=== PATIENT | female | born 1955 | race Caucasian/White ===

== ENCOUNTER → 2017-05-23 16:43 | Outpatient (CLI) | payer OTHER ==
[2016-07-05 11:55] VITALS: BMI 27.1
[~2017-05-23 16:43] MED LIST: ADIPEX-P37.5 M1 PO; AMBIEN10 MG PO; ATIVAN0.5 MG PO; COUMADIN5 MG PO; FOSAMAX 70 MG T70 MG PO; HYZAAR 100-25 T1 TAB PO; NORCO 10/325 TA1 TA1 PO; PEPCID20 MG PO; PERCOCET 10/3251 TA1 PO; PRILOSEC10 M1 PO; ZOCOR20 MG PO
== END | disposition home or self-care (01) ==
LOC: D.MAMMO 10:00
DX: Z12.31 Encounter for screening mammogram for malignant neoplasm of breast (principal)

== ENCOUNTER → 2017-07-23 09:35 | Outpatient (CLI) | payer OTHER ==
[2016-07-05 11:55] VITALS: BMI 27.1
== END | disposition home or self-care (01) ==
LOC: D.MRI 09:35
DX: M54.12 Radiculopathy, cervical region (principal)

== ENCOUNTER 2018-03-18 14:35 | Emergency (ER) | payer OTHER ==
[~2018-03-18] VITALS: Ht 149.9 cm; Wt 68.2 kg
[2018-03-18 15:27] VITALS: Ht 149.9 cm; Wt 68.2 kg
[2018-03-18] MEDS ORDERED: COZAAR100 MG PO (15:30)
[2018-03-18] MEDS ORDERED: ROBAXIN-750750 MG PO (17:43)
[2018-03-18] MEDS ORDERED: VOLTAREN75 MG PO (17:43)
[2018-03-18 18:34] VITALS: BP 186/79
[2018-03-25] MEDS ORDERED: FUROSEMIDE20 MG PO (08:51)
[2018-03-25] MEDS ORDERED: MOBIC7.5 MG PO (08:52)
[2018-03-25] MEDS ORDERED: OMEPRAZOLE40 MG PO (08:52)
[2018-03-25] MEDS ORDERED: CYMBALTA30 MG PO (08:53)
[2018-03-25] MEDS ORDERED: HYDROCODON-ACE1 EAC7 PO (10:51)
== END 2018-03-18 18:15 | disposition home or self-care (01) ==
LOC: D.ER 14:35
DX: S00.83XA Contusion of other part of head, initial encounter (principal); W01.0XXA Fall on same level from slipping, tripping and stumbling without subsequent striking against object, initial encounter; Y93.89 Activity, other specified; Y92.019 Unspecified place in single-family (private) house as the place of occurrence of the external cause; I10 Essential (primary) hypertension; K21.9 Gastro-esophageal reflux disease without esophagitis; F17.200 Nicotine dependence, unspecified, uncomplicated

== ENCOUNTER 2018-03-26 06:30 | Day surgery (SDC) | payer OTHER ==
[2018-03-25 09:37] LABS: HEMOGLOBIN 11.5 g/dL (12-16); MCH 27.2 pg (26.0-34.0); MCHC 31.1 g/dL (31.0-37.0); MCV 87.5 fL (80.0-100.0); MEAN PLATELET VOLUME 8.4 fL (7.4-10.4); RBC 4.23 10x6/uL (4.00-5.40); RDW 14.8 % (11.5-14.5); WBC 5.4 10x3/uL (4.8-10.8)
[~2018-03-26] VITALS: Ht 149.9 cm; Wt 86.2 kg
--- NOTE | ~2018-03-26 | OP ---
PATIENT NAME: ELISSA STRANGE MEDICAL RECORD: [id number] :51 LOCATION:D.OPS ADMISSION DATE: SURGEON: ALETHA WILEY MD DATE OF OPERATION: 03/26/2018 PREOPERATIVE DIAGNOSIS: Recurrent carpal tunnel syndrome of the right wrist. POSTOPERATIVE DIAGNOSIS: Recurrent carpal tunnel syndrome of the right wrist. PROCEDURE: Carpal tunnel release of the right wrist. SURGEON: Aletha Wiley MD ANESTHESIA: General. INTRAOPERATIVE COMPLICATIONS: None. SUMMARY OF PATHOLOGIC FINDINGS: The patient had recurrent transverse carpal ligament, which was tight and pressing on the medial nerve consistent with the preoperative EMGs and NCVs. OPERATIVE SUMMARY IN DETAIL: After obtaining the appropriate preoperative orthopedic surgery consents as well as anesthetic consultation, evaluation, and clearance, the patient was brought to the operating room and placed on the table in supine position. After general laryngeal mask was administered, tourniquet was placed about the proximal aspect of the right upper extremity. Right upper extremity was then prepped and draped in routine sterile fashion. The arm was elevated, exsanguinated, and the tourniquet was inflated to 250 mmHg. An incision was made along the fourth metacarpal row over the lateral palmar crease. Incision was taken down to the palmar fascia, which was incised revealing the distal aspect of the transverse carpal ligament. A small incision was made to identify the median nerve. Median nerve was then protected with a Paulina elevator. Drifton light knife was then used to completely release the transverse carpal ligament to the proximal wrist crease. Having completed this, the wound was irrigated and closed with 4-0 Prolene. Sterile dressings were applied. The area was locally infiltrated with 0.25% Marcaine plain. Sterile dressings were applied. Tourniquet deflated. The patient was awakened and taken to the recovery room in stable condition. All final needle and sponge counts were correct. TRANSINT:[id number] Voice Confirmation ID: [id number] DOCUMENT ID: [id number] ALETHA WILEY MD at 1035 CC: [id number] DICTATION DATE: 03/26/18928 DIRECTOR SOFTWARE DEVELOPMENT: 03/26/18 [id number] [place] [address]
[~2018-03-26 06:30] MED LIST changes: +COZAAR100 MG PO; +CYMBALTA30 MG PO; +FUROSEMIDE20 MG PO; +HYDROCODON-ACE1 EAC7 PO; +MOBIC7.5 MG PO; +OMEPRAZOLE40 MG PO; +ROBAXIN-750750 MG PO; +VOLTAREN75 MG PO
[2018-03-26 07:36] VITALS: BP 142/63; Ht 149.9 cm; Wt 86.2 kg
[2018-03-26] MEDS ORDERED: HYDROCODONE-APA1 TAB PO (09:21)
== END 2018-03-26 11:30 | disposition home or self-care (01) ==
LOC: D.OPS 06:30 → D.PAN 09:30 → D.OPS 10:15
PROVIDERS: Anesthesiology
DX: G56.01 Carpal tunnel syndrome, right upper limb (principal); Z01.812 Encounter for preprocedural laboratory examination

== ENCOUNTER → 2019-01-07 17:03 | Outpatient (CLI) | payer OTHER ==
[2018-03-26 07:36] VITALS: BMI 38.4
[~2019-01-07 17:03] MED LIST changes: +HYDROCODONE-APA1 TAB PO
== END | disposition home or self-care (01) ==
LOC: D.MAMMO 09:30
PROVIDERS: ATTEND Emergency Medicine
DX: Z12.31 Encounter for screening mammogram for malignant neoplasm of breast (principal)

== ENCOUNTER 2019-07-08 06:25 | Day surgery (SDC) | payer OTHER ==
[2019-07-07 14:29] LABS: BASOPHILS 0 % (0-2); EOSINOPHILS 0.4 % (0-7); HEMATOCRIT 35.8 % (36.0-48.0); HEMOGLOBIN 11.1 g/dL (12-16); IMMATURE GRANULOCYTES 0.2 % (0-5); MCH 26.9 pg (26.0-34.0); MCV 86.9 fL (80.0-100.0); MEAN PLATELET VOLUME 8.2 fL (7.4-10.4); MONOCYTES 7.7 % (2-11); NEUTROPHILS 73.7 % (40-80); PLATELET COUNT 236 10x3/uL (130-400); RBC 4.12 10x6/uL (4.00-5.40); RDW 14.5 % (11.5-14.5)
[2019-07-07 14:46] LABS: CALC OSMOLALITY 275 mosm/kg (275-300); CALCIUM 8.9 mg/dL (8.5-10.1); CARBON DIOXIDE 29.1 mmol/L (21.0-32.0); CHLORIDE - SERUM 101 mmol/L (98-107); CREATININE - SERUM 0.6 mg/dL (0.6-1.3); GLUCOSE 98 mg/dL (74-106); POTASSIUM - SERUM 3.9 mmol/L (3.5-5.1); SODIUM 138 mmol/L (136-145); UREA NITROGEN 12 mg/dL (7-18); eGFR NON AFRICAN AMERICAN > 90 mL/min (90-120)
[~2019-07-08] VITALS: Ht 149.9 cm; Wt 65.8 kg
[~2019-07-08 06:25] MED LIST changes: +ALBUTEROL SULF8.5 GM INH; +ANORO ELLIPTA1 EACH INH; +CALAN SR240 MG PO; +CARAFATE1 G PO; +GABAPENTIN100 MG PO
[2019-07-08 07:21] VITALS: BP 130/37; Ht 149.9 cm; Wt 65.8 kg
[2019-07-08] MEDS ORDERED: HYDROCODON-ACE1 EA10 PO (08:45)
--- NOTE | 2019-07-08 09:31 | NUR ---
PATIENT RESPONDS TO [facility]. MEETS ANESTHESIA DISCHARGE CRITERIA.
--- NOTE | 2019-07-09 08:22 | OP ---
PATIENT NAME: ELISSA STRANGE MEDICAL RECORD: [id number] :51 LOCATION:D.OPS ADMISSION DATE: SURGEON: DEREK DIAL MD DATE OF OPERATION: 07/08/2019 PREOPERATIVE DIAGNOSES: 1. Left upper back lipoma (4 cm). 2. Tobacco dependence syndrome. 3. Hypertension. 4. Arthritis. 5. Peptic ulcer disease. POSTOPERATIVE DIAGNOSES: 1. Left upper back lipoma (4 cm). 2. Tobacco dependence syndrome. 3. Hypertension. 4. Arthritis. 5. Peptic ulcer disease. PROCEDURE: Excision of 4 cm left upper back lipoma. SURGEON: Derek Dial MD REPORT OF PROCEDURE: The patient was placed in the right lateral decubitus position and the upper back was prepped and draped in sterile fashion. A 3 cm longitudinal incision was made overlying the mass. Electrocautery was used to dissect through the subcutaneous tissue. We encountered a lipomatous soft tissue mass. This was adherent to the surrounding tissues and these scant adhesions were taken down using blunt dissection and electrocautery. Any vascular structures that were encountered were treated with electrocautery. We eventually were able to completely excise the mass from the tissue sites. The mass was about 4 cm in greatest diameter and was sent off for permanent specimen. We irrigated out the wound bed using normal saline and then treated any bleeding sources with electrocautery. The subcutaneous tissues and Raymond fascia were reapproximated with interrupted 3-0 Vicryl and the skin was closed with running subcutaneous 5-0 Monocryl. A 10 mL of 0.25% Marcaine with epinephrine was infused into the surrounding tissues and the wound was dressed appropriately. COMPLICATIONS: None. CONDITION: Stable. ANESTHESIA: General endotracheal and local. BLOOD LOSS: 30 mL. TRANSINT:[id number] Voice Confirmation ID: [id number] DOCUMENT ID: [id number] OPERATIVE REPORT [id number] ELISSA STRANGE CHRISTIAN MD at 0822 CC: CHETAN WASHINGTON [id number] DICTATION DATE: 07/08/19 0849 HUMAN SERVICE WORKER: 07/08/19 1047 [facility] 07/08/19 [place] [address]
== END 2019-07-08 11:30 | disposition home or self-care (01) ==
LOC: D.OPS 06:25
PROVIDERS: ATTEND Surgery
DX: D17.1 Benign lipomatous neoplasm of skin and subcutaneous tissue of trunk (principal); I10 Essential (primary) hypertension; K27.9 Peptic ulcer, site unspecified, unspecified as acute or chronic, without hemorrhage or perforation

== ENCOUNTER 2019-09-30 11:55 | Observation (INO) | payer OTHER ==
[~2019-09-30] VITALS: Ht 149.9 cm; Wt 56.8 kg
--- NOTE | ~2019-09-30 | HEMODYNAMI ---
PATIENT:ELISSA STRANGE MEDICAL RECORD: [id number] : 51 LOCATION:[facility] D.2125 [facility]# [id number] ADMISSION DATE: 09/30/19 Generatedon:10/01/201914:55 Patient name: ELISSA STRANGE Patient #: [id number] SSN : [id number] : 1955 Date of study: 10/01/2019 Page: Of Hemodynamic Procedure Report Patient Data Patient Demographics Procedure consent was obtained First Name: ELISSA Gender: Female Last Name: ALIE : 1955 [facility] Initial: SEVEN Age: 64 year(s) Patient #: [id number] Race: SSN: [id number] Additional ID: [id number] Contact details Address: [address] [place] [address] State: [place] City: [place] Zip code: [address] Past Medical History Allergies: No known allergies Admission Admission Data Admission Date: 09/30/2019 Admission Time: 15:58 Arrival Date: 10/01/2019 Arrival Time: 0:00 Admit Source: Other Insurance Payor: Private Room #: D.2125 health insurance [facility] #: [id number] Height (in.): 59 BSA: 1.51 (m2) Height (cm.): 149.86 BMI: 25.29 (kg/m2) Weight (lbs.): 125.22 Weight (kg.): 56.8 Lab Results Lab Result Date: 10/01/2019 Lab Result Time: 0:00 Biochemistry Name Units Result Min Max BUN mg/dl 13 --(--*-)-- 7 18 CK-MB ng/ml 1.9 --(--*-)-- 0 3.6 Creatinine mg/dl 0.7 --(*---)-- 0.6 1.3 eGFR ml/min 88.41701 -*(----)-- 90 120 NONAFRICAN Troponin l ng/ml 0.017 --(-*--)-- 0 0.06 CBC Name Units Result Min Max Hematocrit % 34.1 *-(----)-- 42 54 Hemoglobin g/dl 10 *-(----)-- 13.5 17.5 Procedure Procedure Types Cath Procedure Diagnostic Procedure [facility] ED w/Coronaries FFR/IVUS FFR Initial Cardioversion External PCI Procedure Coronary Stent Coronary Stent Initial Hemochron ACT Test Procedure Description Procedure Date Procedure Date: 10/01/2019 Procedure Start Time: 14:30 Procedure End Time: 14:50 Procedure Staff Name Function Neil Iglesias MD Performing Physician Mary Duran RT Monitor Marta Long RT Monitor Nils Ramirez RN Nurse Brenton Soto RT Scrub Rylee Mccabe RT Scrub Kevin Aviles CRNA Additional personnel Indication Chest pain Shortness of breath Procedure Data Cath Procedure Fluoroscopy Diagnostic fluoroscopy Total fluoroscopy Time: 2.7 time: 2.7 min min Diagnostic fluoroscopy Total fluoroscopy dose: 403 dose: 403 mGy mGy Contrast Material Contrast Material Type Amount (ml) Isovue 370 67 Entry Location Entry Primary Successful Side Size Upsize Upsize Entry Closure Succes sful Closure Location (Fr) 1 (Fr) 2 (Fr) Remarks Device Remarks Femoral Right 5 Fr Exoseal artery Estimated blood loss: 10 ml Diagnostic catheters Device Type Used For End Catheter Placement MULTIPACK Pigtail 5 Fr Procedure catheter MULTIPACK JL 4.0 5Fr Procedure catheter MULTIPACK 3DRC 5Fr Procedure catheter Procedure Complications No complications Procedure Medications Medication Administration Route Dosage Oxygen etCO2 Nasal cannula 2 l/min Lidocaine 2% added to field 20 Heparin Flush Bag added to field 2 bags (1000units/500ml NS) 0.9% NaCl I.V. 100 ml/hr Refer to Anesthesia Notes for Sedation Medications Heparin Bolus I.V. 4000 units Hemodynamics Rest BSA: 1.51 (m2) HGB: 10 (g/dl) O2 Consumption: Estimated: 151.48 (ml/min) O2 Cons umption indexed: Estimated:100.32 (ml/min/m) Heart Rate: 89 (bpm) Snapshots Pre Cath Intra NCS Post Cath Vital Signs Time Heart Resp SPO2 etCO2 NIBP (mmHg) Rhythm Pain Sedation Rate (ipm) (%) (mmHg) Status Level (bpm) 14:20:35 111 19 94 32.3 144/93(124) A-Fib 0 (11) 10(A) , No pain 14:24:40 76 19 95 30 142/89(113) A-Fib 0 (11) 10(A) , No pain 14:28:52 91 13 94 30.8 113/68(96) A-Fib 0 (11) 10(A) , No pain 14:32:56 88 14 95 33.7 108/63(73) A-Fib 0 (11) 10(A) , No pain 14:37:02 82 14 95 36.8 92/55(72) A-Fib 0 (11) 9(A) , No pain 14:40:59 84 13 97 39 91/58(76) A-Fib 0 (11) 9(A) , No pain 14:45:03 42 11 96 34.5 86/39(59) A-Fib 0 (11) 9(A) , No pain 14:49:03 42 13 97 33 82/45(62) A-Fib 0 (11) 10(A) , No pain 14:52:40 42 19 95 26.2 93/44(62) A-Fib 0 (11) 10(A) , No pain Medications Time Medication Route Dose Verified Delivered Reason Notes Effectiveness by by 14:20:28 Oxygen etCO2 2 Neil Wray used for Nasal l/min Harris Ramirez RN procedure cannula 14:20:36 Lidocaine 2% added 20ml Neil Trejo for local to vial Harris Iglesias MD anesthetic field 14:20:44 Heparin Flush added 2 Neil Trejo used for Bag to bags Harris Iglesias MD procedure (1000units/500ml field NS) 14:20:55 0.9% NaCl I.V. 100 Neil Wray Per physician ml/hr Harris Ramirez RN 14:32:23 Refer to Neil Brown Anesthesia Notes Harris Aviles for Sedation TUBE FITTER Medications 14:40:26 Heparin Bolus I.V. 4000 Neil Wray for verif ied units Harris Ramirez RN anticoagulation with dr iglesias Procedure Log Time Note 13:48:16 Informed consent obtained and on chart 13:48:30 Diagnostic Cath Status : Elective 13:51:32 Procedure Status Elective Heart Cath (OP). 13:51:36 Brenton NATION(R) sent for patient. Start room use. 13:51:39 Time tracking: Regular hours (M-F 7:00 - 5:00) 13:51:45 Plan of Care:Hemodynamics will remain stable., Cardiac rhythm will remain stable., Comfort level will be maintained., Respiratory function will remain adequate., Patient/ family verbilizes understanding of procedure., Procedure tolerated without complication., Recovers from procedure without complications.. 13:53:17 Lab Result : BUN 13 mg/dl 13:53:17 Lab Result : Creatinine 0.7 mg/dl 13:53:17 Lab Result : CK-MB 1.9 ng/ml 13:53:17 Lab Result : Troponin l 0.017 ng/ml 13:53:17 Lab Result : eGFR NONAFRICAN 88.36904 ml/min 13:53:17 Lab Result : Hemoglobin 10 g/dl 13:53: Lab Result : Hematocrit 34.1 % 13:53:23 Lab results completed and on chart. 13:53:27 Stress Test: no; N/A ? 13:56:47 Risk of Mortality: 1.9 13:56:51 Risk of blood transfusion: 14.9 13:56:54 Risk of IDANIA: 1.8 13:59:26 Admit Source: Other 13:59:28 Arrival Date: 10/01/2019 12:00:00 AM 13:59:37 Insurance Payor : Private health insurance 13:59:49 Patient Height : 59 inches 13:59:54 Patient Weight : 125.22 lbs 14:00:04 Indication : Chest pain 14:00:10 Indication : Shortness of breath 14:10:36 Patient received from Med II to CCL 1 Alert and oriented. Tansferred to table in Supine position. 14:10:37 Warm blankets applied, and love hugger turned on for patient comfort. 14:10:38 Correct patient and procedure confirmed by team. 14:10:40 ECG and BP/O2 sat monitors applied to patient. 14:10:47 H&P Date Dictated: 10/01/2019 Within 30 days and on chart.. 14:10:49 Pre-procedure instructions explained to patient. 14:10:49 Pre-op teaching completed and patient verbalized understanding. 14:10:52 Family unavailable. 14:10:54 Patient NPO since Midnight. 14:10:59 Patient allergic to No known allergies 14:12:22 Kevin Aviles CRNA present and monitoring patient for TIVA. 14:12:47 Is the patient allergic to Iodine/contrast media? No. 14:12:48 Was the patient premedicated? Yes 14:12:55 Is patient on blood thinner?Yes 14:12:59 ACC The patient was administered the following blood thiners within the last 24 hours: ACCPlavix 14:13:04 Snore? Yes 14:13:10 Airway obstruction? Yes COPD 14:13:15 Dentures? No ? 14:13:22 Previous problem with sedation/anesthesia? No ? 14:13:23 Sleep apnea? No 14:13:25 Deviated septum? No 14:13:26 Opens mouth fully? Yes 14:13:28 Sticks out tongue? Yes 14:13:30 ----Pre-sedation anethsthesia assessment.---- 14:13:32 Patient not . Patient is over age 55. 14:14:08 Patient diabetic? No. 14:15:05 IV patent on arrival in left antecubital with 0.9% NaCl at [facility]. 14:15:09 Patient pain scale 0/10 ?. 14:15:14 Pre procedure: right dorsailis pedis pulse 2+ Normal; easily identifiable; not easily obliterated 14:15:17 Modified Gaurav's test Ulnar < 7 seconds 14:15:25 Alarms reviewed by R. N. 14:15:26 Sharps counted by scrub and verified by R.N. 14:15:30 Right Radial & Right Groin area was prepped with chlora-prep and draped in sterile fashion 14:16:20 Use device set Radial Dx or PCI 14:16:21 ACIST Syringe (50436) opened to sterile field. 14:16:22 Medline Cath Pack ([id number]) opened to sterile field. 14:16:22 Bag Decanter () opened to sterile field. 14:16:23 ACIST Hand Control (24586) opened to sterile field. 14:16:24 ACIST Manifold (86107) opened to sterile field. 14:16:25 MBrace Wrist Support ([id number]) opened to sterile field. 14:16:28 Tegaderm 4 x 4 (1626W) opened to sterile field. 14:16:30 EMERALD Guide Wire (626-702) opened to sterile field. 14:16:31 SHEATH 6FR RAIN ([id number]) opened to sterile field. 14:20:28 Oxygen 2 l/min etCO2 Nasal cannula was administered by Nils Ramirez RN; used for procedure; Verbal order read back and verified. 14:20:36 Lidocaine 2% 20ml vial added to field was administered by Neil Iglesias MD; for local anesthetic; Verbal order read back and verified. 14:20:44 Heparin Flush Bag (1000units/500ml NS) 2 bags added to field was administered by Neil Iglesias MD; used for procedure; Verbal order read back and verified. 14:20:55 0.9% NaCl 100 ml/hr I.V. was administered by Nils Ramirez RN; Per physician; Verbal order read back and verified. 14:21:00 Baseline sample Acquired. 14:28:32 --------ALL STOP TIME OUT------ 14::32 Final Timeout: patient, procedure, and site verified with staff and physician. All members of the team are in agreement. 14:28:35 Right Radial & Right Groin site verified by team. 14:28:39 Fire Safety Assessment: A--An alcohol-based skin anteseptic being used preoperatively., C--Open oxygen or nitrous oxide is being used., D--An ESU, laser, or fiber-optic light is being used. 14:28:43 Physical assessment completed. ASA score P 2 - A patient with mild systemic disease as per Neil Iglesias MD. 14:28:49 2) 60-89 Mildly reduced kidney function, and other findings (as for stage 1) point to kidney disease. 14:28:54 Maximum allowable contrast dose (3.7 X eGFR X 0.75)247 ml. 14:29:05 Sedation plan: IV Moderate Sedation Medication:Propofol 14:30:23 Procedure started. 14:30:30 Baseline sample Acquired. 14:30:34 Rhythm: atrial fibrillation 14:30:50 Local anesthetic to right radial artery with Lidocaine 2% by Neil Iglesias MD.INITIAL ACCESS ONLY 14:30:56 Zero performed for pressure channel P1 14:30:59 Zero performed for pressure channel P1 14:31:02 Zero performed for pressure channel P1 14:31:23 UNABLE TO GAIN RADIAL ACCESS 14:31:35 Use device set Multipack Set 14:31:37 DIAGNOSTIC Multipack 5Fr catheter set ([id number]) opened to sterile field. 14:31:38 SHEATH 5FR [place] (XQP107) opened to sterile field. 14:31:45 Local anesthetic to right femoral artery with Lidocaine 2% by Neil Iglesias MD.ADDITIONAL ACCESS 14:32:23 Refer to Anesthesia Notes for Sedation Medications was administered by Kevin Aviles CRNA; ; Verbal order read back and verified. 14:32:32 A 5 Fr sheath was inserted into the Right Femoral artery 14:32:42 A MULTIPACK Pigtail 5 Fr catheter was advanced over the wire and used for Procedure. 14:33:45 Injector settings: Ml/sec: 5, Volume: 15, 14:33:48 LV gram done using RAMIREZ 14:33:55 EF : 55 % 14:33:56 Catheter removed. 14:34:01 A MULTIPACK JL 4.0 5Fr catheter was advanced over the wire and used for Procedure. 14:34:59 LCA angiography performed. 14:36:15 Catheter removed. 14:36:26 A MULTIPACK 3DRC 5Fr catheter was advanced over the wire and used for Procedure. 14:36:32 RCA angiography performed. 14:36:38 ACCDominant side:Left 14:36:41 Catheter removed. 14:36:42 Proceeding to intervention. 14:37:02 GUIDE 5FR EBU 3.5 catheter ([id number]) opened to sterile field. 14:37:05 INFLATOR Merit BasixCompak (ZX4731) opened to sterile field. 14:37:05 [place] Verrata Plus pressure wire (54010P) opened to sterile field. 14:37:15 5 Fr EBU 3.5 guide catheter was inserted over the wire 14:38:57 FFR/IFR wire advanced. 14:39:03 Wire advanced across lesion. 14:40:26 Heparin Bolus 4000 units I.V. was administered by Nils Ramirez RN; for anticoagulation; verified with dr iglesias Verbal order read back and verified. 14:40:39 mLAD lesion measured at .76 with IFR 14:41:44 Pre PCI Site: [place] mLAD has 70% stenosis. 14:42:59 Place stent Inflation Number: 1 A INTEGRITY RX 2.5 x 26 stent ([id number]) was prepped and advanced across the Mid LAD . The stent was deployed at 11 CARSON for 0:00 (min:sec) . 14:43:13 Stent catheter was removed intact over wire. 14:43:17 Wire removed. 14:43:18 Guide catheter removed. 14:43:28 Quick Combo opened to sterile field. 14:43:37 ------Cardioversion------ 14:43:37 Quick combo pads placed on patients chest and back. 14:43:43 Defibrillator synced and charged to 275 Joules. 14:44:39 Shock delivered. 14:44:54 Patient cardioverted to sinus bradycardia. 14:45:10 EXOSEAL 5Fr (EX500) opened to sterile field. 14:45:19 Sheath removed intact; hemostasis achieved with Exoseal to the Right Femoral artery. 14:45:21 Procedure ended.(Physican Out) 14:45:27 Fluoroscopy time 02.70 minutes. 14:45:31 Flurop Dose total: 403 14:45:31 Fluoroscopy dose: 403 mGy 14:45:37 Dose Area Product 91029 mGy/cm. 14:45:46 Contrast amount:Isovue 370 67ml. 14:45:49 Maximum allowable dose exceeded? No. 14:45:54 Post-op/insertion site Right Femoral artery dressed using a 4 x 4 and Tegaderm. 14:46:00 Post right femoral artery:stable, soft, clean and dry 14:46:28 Post Procedure Pulses reassessed and unchanged 14:46:32 Post procedure: right dorsailis pedis pulse 2+ Normal; easily identifiable; not easily obliterated. 14:46:36 Post-procedure physical assessment completed. ASA score P 2 - A patient with mild systemic disease as per Neil Iglesias MD. 14:46:42 Post procedure rhythm: sinus bradycardia 14:46:45 Estimated blood loss: 10 ml 14:46:47 Post procedure instruction explained to patient.Patient verbalizes understanding. 14:46:48 Patient needs reinforcement of post procedure teaching. 14:47:57 Procedure type changed to Cath procedure, Diagnostic procedure, LHC, LHC w/Coronaries, FFR/IVUS, FFR Initial, Cardioversion External, PCI procedure, Coronary Stent, Coronary Stent Initial, Hemochron ACT Test 14:50:16 Procedure and supply charges have been captured, reviewed, submitted and are correct. 14:50:22 Procedure Complication : No complications 14:50:26 [facility] Findings: MVD- PCI performed (see procedure note) 14:50:27 Operative report dictated upon procedure completion. 14:50:28 See physician's report for complete and final results. 14:50:30 Report given to [facility]. 14:50:35 Patient transfered to [facility] II with Bed. 14:50:39 Vital chart was stopped 14:50:45 Procedure ended. 14:50:45 Full Disclosure recording stopped 14:51:51 Vital chart was started 14:52:07 ACT drawn and resulted at 214 seconds. (normal therapeutic range 180-240 seconds). 14:54:37 End room use (Document Last) 14:55:08 End room use (Document Last) 14:55:24 Vital chart was stopped Intervention Summary Intervention Notes Time ActionType Lesion and Equipment Action# Pressure Duration Attributes Used 14:42:59 Place stent Mid LAD INTEGRITY RX 1 11 00:00 2.5 x 26 stent ([id number]) Device Usage Item Name Manufacture Quantity Catalog Hospital Part Current [facility] Lot# / Number Charge Number Stock Stock Serial# Code ACIST Acist 1 90192 907665 552269 845068 20 Syringe Medical (94250) Systems Inc Medline Cath Medline 1 [id number] 514151 87320 887514 5 Pack ([id number]) Bag Decanter Microtek 1 2001S 330321 24364 172936 5 (2001S) Medical Inc. ACIST Hand Acist 1 96881 253122 240330 794893 5 Control Medical (77935) Systems Inc ACIST Acist 1 00809 225763 901972 976367 5 Manifold Medical (65843) Systems Inc MBrace Wrist Advanced 1 140-0250-00 564741 85076 339813 5 Support Vascular (996122981) Dynamics Tegaderm 4 x 3M 1 1626W 137567 892358 052527 5 4 (1626W) EMERALD Cardinal 1 502-455 842197 702802 627410 5 Guide Wire [facility] (431-455) SHEATH 6FR Cardinal 1 4697008 765439 9853924 202720 [address] [facility] (8771148) DIAGNOSTIC Cardinal 1 CZ7324 439231 05683 279889 30 Ophtalmopharma 5Fr catheter set (DZ7835) SHEATH 5FR Terumo 1 CGQ551 132288 979058 911178 5 [place] (SXX129) MULTIPACK Cardinal 1 177339 5 Pigtail 5 Fr Health catheter MULTIPACK JL Cardinal 1 443313 5 4.0 5Fr Health catheter MULTIPACK Cardinal 1 832545 5 3DRC 5Fr Health catheter GUIDE 5FR Medtronic 1 [id number] 904799 308816 187310 1 EBU 3.5 catheter (ZA4FCO64) INFLATOR Merit 1 SE1107 111576 673213 541440 15 [facility] Medical BasixCompak (NX5392) [place] 1 35842J 070336 988318154 028653 5 Verrata Plus pressure wire (14999K) INTEGRITY RX Medtronic 1 [id number] 699366 163003 646575 5 [id number] 2.5 x 26 stent ([id number]) Indigo Clothing 1 00188-627375 681749 736849 617608 5 EXOSEAL 5Fr Cardinal 1 EX500 885433 425309 094132 10 (EX500) Health Signature Audit [place] Stage Time Signature Unsigned Intra-Procedure 10/01/2019 Marta Long 2:54:54 PM RT(R) Intra-Procedure 10/01/2019 Nils Ramirez RN 2:55:08 PM Intra-Procedure 10/01/2019 Neil Iglesias 2:55:22 PM [facility] [address] [place] [address]
--- NOTE | ~2019-09-30 | EC ---
PATIENT:ELISSA STRANGE DATE OF SERVICE: 09/30/19 SEX: F MEDICAL RECORD: [id number] DATE OF : [birth year] LOCATION:D.M2 D.212 AGE OF PATIENT: 64 ADMISSION DATE: 09/30/19 REFERRING PHYSICIAN: INTERPRETING PHYSICIAN: LINK IGLESIAS MD ECHOCARDIOGRAM REPORT ECHO CHARGES 4 ECHO COMPLETE Date: 10/01/19 CLINICAL DIAGNOSIS: CHF ECHOCARDIOGRAPHIC MEASUREMENTS (adult normal given) AC root (d.<3.7cm) 2.9 cm LV Septum d (<1.2 cm> 1.2 cm Valve Excursion 1.5 cm LV Septum (systole) 1.7 cm Left Atria (s.<4.0cm> 4.7 cm LVPW d(<1.2cm) 1.5 cm RV (d.<2.3cm) 3.8 cm LVPW (sytole) 1.8 cm LV diastole(<5.6CM) 4.4 cm MV E-F(>70mm/sec) cm LV systole 3.0 cm LVOT Diameter 2.1 cm MV exc.(>10mm) 1.0 cm Est.ejection fraction (50-75%) % DOPPLER: LVIT cm/sec A 39.0 cm/sec E 169.0 cm/sec LA cm/sec RVSP 73 mmHg LVOT 83 cm/sec AOP1/2T m/s Asc. Ao 145 cm/sec RVOT 99 cm/sec RA cm/sec PA 116 cm/sec AV Gradient Peak 8.38 mmHg AV Mean 3.41 mmHg AV Area 2.3 cm MV Gradient Peak 14.05mmHg MV Mean 3.62 mmHg MV Area cm COMMENTS: Senior Facilities Manager: [facility] [employer] [facility] Coordinator: 1 Dr. Iglesias TAPE# PACS Pericardial Effusion N DATE OF SERVICE: Echocardiogram FINDINGS: 1. Left ventricular chamber size is within normal limits. Left ventricular systolic function is normal at 55% to 60%. 2. Left atrium is enlarged at 4.7 cm. Right atrium and right ventricular chamber sizes are mildly dilated as well. 3. Valvular structures have normal structure and motion. ECHOCARDIOGRAM REPORT [id number] ELISSA STRANGE 4. Doppler interrogation reveals mild mitral regurgitation, severe tricuspid regurgitation, no other valvular insufficiency or stenosis. Pulmonary systolic pressure is markedly elevated estimated 73 mmHg. 5. No evidence of pericardial effusion or left ventricular thrombus. TRANSINT:[id number] Voice Confirmation ID: [id number] DOCUMENT ID: [id number] LINK IGLESIAS MD CC: [id number] DICTATION DATE: 10/01/19 1334 INSTALLATION ENGINEER: 10/01/192204 DIS IN 10/01/19 [facility] [address] [place] [id number]
--- NOTE | ~2019-09-30 | DS ---
PATIENT:ELISSA PADILLA :51 MEDICAL RECORD: [id number] DISCHARGE SUMMARY ADMISSION DATE: 09/30/19 DISCHARGE DATE: 10/01/19 DIAGNOSES: 1. New onset atrial fibrillation. 2. Status post cardioversion. 3. Unstable angina, status post PTCA stent LAD. 4. Hypertension. 5. Hyperlipidemia. HOSPITAL COURSE: Mrs. Padilla presents with angina and new onset atrial fibrillation, underwent cardiac catheterization revealing significant disease of the LAD, underwent successful PTCA stent of the LAD. After this DC cardioversion was performed and was successful. She was discharged home with the Betapace 40 mg b.i.d. and Plavix 75 mg daily with the aspirin. We will follow up with [facility] in 1 month at that time hyperlipidemia will be addressed. TRANSINT:[id number] Voice Confirmation ID: [id number] DOCUMENT ID: [id number] LINK HUERTAS MD CC: [id number] DICTATION DATE: 10/01/19 1458 SHIPPING AND RECEIVING ASSOCIATE: 10/02/19 0541 DIS IN 10/01/19 [facility] [address] [place] [address]
--- NOTE | ~2019-09-30 | OP ---
PATIENT NAME: ELISSA STRANGE MEDICAL RECORD: [id number] :51 LOCATION:D.M2 D.2125 ADMISSION DATE:09/30/19 SURGEON: LINK HUERTAS MD DATE OF OPERATION: 10/01/2019 PROCEDURES: 1. PTCA stent LAD. 2. IFR. 3. Left heart catheterization. 4. Selective coronary angiography. 5. Left ventriculogram. INDICATION: Angina, coronary artery disease, atrial fibrillation. PROCEDURE: After informed consent was obtained and after a detailed description of risks, benefits as well as alternative therapies, the patient elected to proceed with angiogram and angioplasty. The right femoral area was prepped and draped in normal sterile fashion. Right femoral artery was cannulated via modified Seldinger technique with placement of 5-Naur[place] sheath. All catheters exchanged through this sheath. FINDINGS: Left ventriculogram was performed in standard 30-degree RAMIREZ view, reveals good cardiac wall motion, ejection fraction estimated 60%. SELECTIVE CORONARY ANGIOGRAPHY: 1. Left main is with no significant angiographic disease. 2. Left anterior descending has a questionable 70% stenosis in the mid vessel. IFR is abnormal. 3. Left circumflex has moderate irregularities, but no flow-limiting stenosis. 4. Right coronary has moderate irregularities, but no flow-limiting stenosis. PTCA STENT OF THE LAD: The stent used was a 2.5 x 26 mm Integrity. Result was 0% residual stenosis. IV conscious sedation was per anesthesia. Continuous heart rate, O2 saturation, blood pressure monitoring all undertaken, all of which remained stable. She received 1 shock at 275 joules restoring sinus rhythm. OVERALL IMPRESSION: Successful percutaneous transluminal angioplasty stent of the left anterior descending and successful DC cardioversion. TRANSINT:[id number] Voice Confirmation ID: [id number] DOCUMENT ID: [id number] LINK HUERTAS MD CC: [id number] DICTATION DATE: 10/01/19 1456 MANAGER AUTO: 10/01/19 2311 DIS IN 10/01/19 [facility] [address] [place] [address]
--- NOTE | ~2019-09-30 | CN ---
PATIENT NAME:ELISSA PADILLA MEDICAL RECORD: [id number] : 51 LOCATION:D. D.2125 ADMIT DATE: 09/30/19 ACCOUNT: [id number] CONSULTING PHYSICIAN: LINK HUERTAS MD REFERRING PHYSICIAN: NATACHA KOWALSKI MD DATE OF CONSULTATION: 10/01/2019 DIAGNOSES: 1. New onset atrial fibrillation. 2. Unstable angina. 3. Hypertension. 4. Hyperlipidemia. 5. Smoking. 6. Chronic obstructive pulmonary disease. 7. Family history of coronary artery disease. HISTORY OF PRESENT ILLNESS: Mrs. Padilla was doing well until 2 days ago. She began having relatively severe chest pressure and tightness, very compatible with unstable angina and profound shortness of breath. She let this go for a day, presented to the Emergency Room yesterday with these symptoms, found to be in new-onset atrial fibrillation. She has no history of ischemic heart disease. Her chest pain and chest pressure is very compatible with angina, a dull aching sensation, like an elephant sitting on her chest. She would have this at rest and she continues to have this now. The atrial fibrillation is controlled with her heart rate under 100 now. PHYSICAL EXAMINATION: CONSTITUTIONAL/GENERAL APPEARANCE: Well nourished, well developed, appears stated age. EYES: Lids and conjunctivae noninjected. No discharge. No pallor. ENT: Lips within normal limit. No cyanosis. No pallor. NECK: Carotid arteries, bilateral normal upstroke. No bruits. No thrills. No jugular venous pressure or distention. CERVICAL LYMPH NODES: Nontender. Nonenlarged. THYROID: Not enlarged. No nodules. CARDIOVASCULAR: Precordial exam, nondisplaced. No heaves or pericardial thrills. Rate and rhythm, regular. Heart sounds, normal S1, normal S2. No S3, no gallop, no rub. Systolic murmur, not heard. Diastolic murmur, not heard. RESPIRATORY: Respiratory effort, unlabored. Normal curvature. No thoracic deformity. No chest wall tenderness. Percussion, resonant. Auscultation, clear. No wheezes, no rales, no rhonchi. ABDOMEN: Soft, nondistended, nontender. No abdominal pain, no vomiting and normal appetite. MUSCULOSKELETAL: No joint tenderness, normal gait, normal tone. SKIN: Warm and dry. OVERALL IMPRESSION: Unstable angina with new-onset atrial fibrillation. At this time, we will start her on sotalol. She is already given Lovenox. Because she is within 48 hours, we will plan DC cardioversion and cardiac catheterization. TRANSINT:[id number] Voice Confirmation ID: [id number] DOCUMENT ID: [id number] CONSULT REPORT [id number] ELISSA PADILLA JEFFREY MD CC: [id number] DICTATION DATE: 10/01/19 1005 GUT DROPPER: 10/01/19 1504 ADM IN [facility] [address] [id number]
[~2019-09-30 11:55] MED LIST changes: +HYDROCODON-ACE1 EA10 PO
[2019-09-30 12:30] VITALS: BP 137/63
[2019-09-30 12:50] LABS: BASOPHILS 0.2 % (0-2); EOSINOPHILS 1.1 % (0-7); HEMATOCRIT 37.2 % (36.0-48.0); IMMATURE GRANULOCYTES 0.3 % (0-5); LYMPHOCYTES 32.7 % (15-50); MCH 25.1 pg (26.0-34.0); MCHC 29.6 g/dL (31.0-37.0); MCV 84.7 fL (80.0-100.0); MEAN PLATELET VOLUME 8.3 fL (7.4-10.4); MONOCYTES 9.9 % (2-11); NEUTROPHILS 55.8 % (40-80); PLATELET COUNT 253 10x3/uL (130-400); RBC 4.39 10x6/uL (4.00-5.40); RDW 15.4 % (11.5-14.5); WBC 6.5 10x3/uL (4.8-10.8)
[2019-09-30 13:02] LABS: APTT 34.5 SECONDS (22.8-39.4); CALC OSMOLALITY 279 mosm/kg (275-300); CALCIUM 8.9 mg/dL (8.5-10.1); CARBON DIOXIDE 24.1 mmol/L (21.0-32.0); CHLORIDE - SERUM 106 mmol/L (98-107); CREATININE - SERUM 0.8 mg/dL (0.6-1.3); GLUCOSE 86 mg/dL (74-106); INR 1.08 (0.85-1.17); POTASSIUM - SERUM 4.1 mmol/L (3.5-5.1); PROTIME 13.5 SECONDS (11.6-15.0); SODIUM 141 mmol/L (136-145); UREA NITROGEN 12 mg/dL (7-18); eGFR NON AFRICAN AMERICAN 76 mL/min (90-120)
[2019-09-30 13:21] LABS: ALBUMIN 3.6 g/dL (3.4-5.0); ALKALINE PHOSPHATASE 120 U/L (46-116); ALT (SGPT) 21 U/L (10-68); CKMB 1.9 U/L (0.0-3.6); CREATINE KINASE 109 UL (21-215); PRO BNP 2514 pg/mL (0-125); PROTEIN - SERUM 7.1 g/dL (6.4-8.2); TROPONIN-I < 0.017 ng/mL (0.000-0.060)
[2019-09-30 13:30] VITALS: BP 100/67
[2019-09-30 14:30] VITALS: BP 122/52
[2019-09-30 15:30] VITALS: BP 123/76
[2019-09-30 16:30] VITALS: BP 118/67
--- NOTE | 2019-09-30 17:54 | MORECARE ---
CASE MANAGEMENT DISCHARGE SUMMARY PATIENT: ELISSA STRANGE SEVEN UNIT: [id number] ADM DATE: 09/30/19 AGE: 64 : 51 SEX: F ROOM/BED: D.1194 AUTHOR: TRUEDOC PHYSICIAN: REFERRING PHYSICIAN: NATACHA KOWALSKI MD DATE OF SERVICE: 09/30/19 Discharge Plan Patient Name: ELISSA STRANGE Facility: [facility]:[place] : 1955 Planned Disposition: Home Anticipated Discharge Date: 10/01/19 Discharge Date: Expected LOS: 1 Initial Reviewer: [email or web address] Initial Review Date: 09/30/2019 Generated: 09/30/19 6:53 pm DCP- Discharge Planning Updated by [email or web address]: Melany Milton on 09/30/19 4:[address] DC PLAN: Return home with spouse Independently. ANTICIPATED DC NEEDS:Denied known dc needs. CM met with patient to complete initial dc planning assessment. CM educated patient on the CM role and verbal consent given by patient to complete assessment. CM verified patient's address, phone number, and emergency contact phone numbers. Patient lives at home independently with her spouse. At discharge patient plans to return home and feels this is a safe discharge. CM discussed availability of home health, rehab services, and medical equipment. Patient denied known discharge needs at this time. Transportation provider at discharge will be her . CM will continue to follow and will assist as needed with dc plans/needs. Melany Milton RN, [facility] DCPIA - Discharge Planning Initial Assessment Updated by [email or web address]: Melany Milton on 09/30/19 5:51 pm * Is the patient Alert and Oriented? Yes * How many steps to enter\exit or inside your home? TWO * PCP Dr. Ricci * Pharmacy [facility] * Preadmission Environment Home with Family * ADLs Independent * Equipment Cane Rolling Walker Wheelchair * Other Equipment BP Machine * List name and contact numbers for known caregivers / representatives who currently or will assist patient after discharge: Bryan Strange [facility] - [phone] * Community resources currently utilized None * Additional services required to return to the preadmission environment? No * Can the patient safely return to the preadmission environment? Yes * Has this patient been hospitalized within the prior 30 days at any hospital? No Coverage Notice Reviewer: [email or web address] - Melany Milton Notice Issued Date-Time: 09/30/2019 17:48 Notice Type: Medicare Outpatient Observation Notice Notice Delivered To: Patient Relationship to Patient: Last Sawyer Name: Delivery Method: HAND - Hand Delivered Rupinder Days: Prior Verbal Notification: Recipient Understood Notice: Recipient Signature: Med Rec Note Co-signed by Attending: Coverage Notice Comment: Patient Name: ELISSA STRANGE Page [id number] at 1754 All edits/amendments must be made on the electronic document DICTATION DATE: 09/30/191752 COAL PICKER: LORETTA 09/30/191752 RPT#: [id number] [place] DATE: STATUS: ADM IN [facility] [address] [place] [address] END OF REPORT
--- NOTE | 2019-09-30 18:17 | NUR ---
RECEIVED PT FROM ER VIA WHEELCHAIR. PT IS AAO AND UP AD DEVORA. RR EVEN AND UNLABORED ON 2L 02. 1/2NS INFUSING @50ML/HR VIA L.AC PIV. QUICKSTART, MED REQ, AND HISTORY COMPLETED. TELEMETRY PLACED ON PT AND PT IS IN UNCONTROLLED A-FIB BETWEEN 105-125. PT DENIES ANY NEEDS AT THIS TIME. NO S/S OF DISTRESS NOTED. WILL CTM.
[2019-09-30 18:28] VITALS: BMI 25.3
--- NOTE | 2019-09-30 18:35 | NUR ---
ASSEMENT COMPLETE AAOX4 RESP UNLABORED SKIN W/D TELEMTERY UNCAF RATE 102 WILL CONTINUE TO MONITOR
[2019-09-30 20:30] VITALS: BP 134/66
[2019-10-01 00:30] VITALS: BP 125/66
--- NOTE | 2019-10-01 02:54 | NUR ---
RESTING WITH EYES CLOSED, RESPERATIONS EVEN, NO S/S DISTRESS NOTED.
[2019-10-01 04:00] VITALS: BP 110/75
[2019-10-01 05:29] LABS: BASOPHILS 0.2 % (0-2); EOSINOPHILS 1.9 % (0-7); HEMATOCRIT 34.1 % (36.0-48.0); IMMATURE GRANULOCYTES 0.2 % (0-5); LYMPHOCYTES 30.6 % (15-50); MCH 24.9 pg (26.0-34.0); MCHC 29.3 g/dL (31.0-37.0); MEAN PLATELET VOLUME 8.1 fL (7.4-10.4); MONOCYTES 12.2 % (2-11); NEUTROPHILS 54.9 % (40-80); PLATELET COUNT 209 10x3/uL (130-400); RBC 4.01 10x6/uL (4.00-5.40); RDW 15.5 % (11.5-14.5); WBC 5.7 10x3/uL (4.8-10.8)
[2019-10-01 06:09] LABS: CALC OSMOLALITY 281 mosm/kg (275-300); CALCIUM 8.3 mg/dL (8.5-10.1); CARBON DIOXIDE 26.6 mmol/L (21.0-32.0); CHLORIDE - SERUM 106 mmol/L (98-107); CREATININE - SERUM 0.7 mg/dL (0.6-1.3); GLUCOSE 85 mg/dL (74-106); MAGNESIUM - SERUM 1.8 mg/dL (1.8-2.4); PHOSPHOROUS 4.3 mg/dL (2.5-4.9); POTASSIUM - SERUM 3.6 mmol/L (3.5-5.1); SODIUM 142 mmol/L (136-145); THYROID STIMULATING HORMONE 2.29 uIU/mL (0.36-3.74); UREA NITROGEN 13 mg/dL (7-18); eGFR NON AFRICAN AMERICAN 89 mL/min (90-120)
--- NOTE | 2019-10-01 07:25 | NUR ---
ASSESSMENT DONE. DENIES NEEDS
[2019-10-01 10:08] VITALS: Ht 149.9 cm; Wt 56.8 kg
[2019-10-01 10:13] VITALS: BP 113/54
--- NOTE | 2019-10-01 14:05 | NUR ---
TO FOIL OPERATOR PER BED
[2019-10-01 14:25] VITALS: BP 120/74
--- NOTE | 2019-10-01 15:23 | NUR ---
I have reviewed this patient and I concur with the Shift Assessment completed by the Licensed Practical Nurse today this shift.
--- NOTE | 2019-10-01 15:52 | NUR ---
TEXT INTO DR KOWALSKI TO LET HIM KNOW THAT PATIENT CAN BE DISCHARGED AFTER 7 PM IF OKAY WITH HIM, "2125 CAN BE DC AFTER [address] HUERTAS, 1 STENT PLACED". 1601-PER HIS RESPONSE, "LET TERE KNOW AT 5:30 PLEASE".
[2019-10-01 17:05] VITALS: BP 121/68
[2019-10-01] MEDS ORDERED: PLAVIX75 MG PO (18:23)
[2019-10-01] MEDS ORDERED: BETAPACE 80 MG80 MG PO (18:24)
--- NOTE | 2019-10-01 19:33 | NUR ---
DC INSTRUCTIONS GIVEN TO PT, DRSG TO RIGHT GROIN C/D/I. NO SWELLING, BLEEDING OR HEMATOMA NOTED. AT BED SIDE TO ECORT PT HOME.
--- NOTE | 2019-10-04 09:57 | MORECARE ---
CASE MANAGEMENT DISCHARGE SUMMARY PATIENT: ELISSA STRANGE SEVEN UNIT: [id number] ADM DATE: 09/30/19 AGE: 64 : 53 SEX: F ROOM/BED: D.3291 AUTHOR: TRUEDOC PHYSICIAN: REFERRING PHYSICIAN: NATACHA KOWALSKI MD DATE OF SERVICE: 10/04/19 Discharge Plan Patient Name: ELISSA STRANGE Facility: [facility]:[place] : 1955 Planned Disposition: Home Anticipated Discharge Date: 10/01/19 Discharge Date: 10/01/2019 Expected LOS: 1 Initial Reviewer: [email or web address] Initial Review Date: 09/30/2019 Generated: 10/04/19 10:56 am DCP- Discharge Planning Updated by [email or web address]: Melany Milton on 09/30/19 4:[address] DC PLAN: Return home with spouse Independently. ANTICIPATED DC NEEDS:Denied known dc needs. CM met with patient to complete initial dc planning assessment. CM educated patient on the CM role and verbal consent given by patient to complete assessment. CM verified patient's address, phone number, and emergency contact phone numbers. Patient lives at home independently with her spouse. At discharge patient plans to return home and feels this is a safe discharge. CM discussed availability of home health, rehab services, and medical equipment. Patient denied known discharge needs at this time. Transportation provider at discharge will be her . CM will continue to follow and will assist as needed with dc plans/needs. Melany Milton RN, [facility] DCPIA - Discharge Planning Initial Assessment Updated by [email or web address]: Melany Milton on 09/30/19 5:51 pm * Is the patient Alert and Oriented? Yes * How many steps to enter\exit or inside your home? TWO * PCP Dr. Ricci * Pharmacy [facility] * Preadmission Environment Home with Family * ADLs Independent * Equipment Cane Rolling Walker Wheelchair * Other Equipment BP Machine * List name and contact numbers for known caregivers / representatives who currently or will assist patient after discharge: Bryan Strange [facility] - [phone] * Community resources currently utilized None * Additional services required to return to the preadmission environment? No * Can the patient safely return to the preadmission environment? Yes * Has this patient been hospitalized within the prior 30 days at any hospital? No Coverage Notice Reviewer: [email or web address] Diana Milton Notice Issued Date-Time: 09/30/2019 17:48 Notice Type: Medicare Outpatient Observation Notice Notice Delivered To: Patient Relationship to Patient: Cobbler Sole Name: Delivery Method: HAND - Hand Delivered Rupinder Days: Prior Verbal Notification: Recipient Understood Notice: Recipient Signature: Med Rec Note Co-signed by Attending: Coverage Notice Comment: Last DP export: 09/30/19 4:54 Patient Name: ELISSA STRANGE Page 55986 at 0957 All edits/amendments must be made on the electronic document DICTATION DATE: 10/04/19955 COMMERCIAL ART INSTRUCTOR: LORETTA 10/04/19955 RPT#: [id number] DC DATE:10/01/19 STATUS: DIS IN [facility] [address] [place] [address] END OF REPORT
== END 2019-10-01 19:57 | disposition home or self-care (01) ==
LOC: D.ER 11:55 → D.M2 15:58 → OBSVTIME 17:45 → D.M2 17:54
PROVIDERS: Family Medicine; ADMIT Internal Medicine Nephrology; ATTEND Internal Medicine Nephrology
DX: I25.110 Atherosclerotic heart disease of native coronary artery with unstable angina pectoris (principal); I48.91 Unspecified atrial fibrillation; I10 Essential (primary) hypertension; E78.5 Hyperlipidemia, unspecified; J96.01 Acute respiratory failure with hypoxia; D50.9 Iron deficiency anemia, unspecified; K21.9 Gastro-esophageal reflux disease without esophagitis; J44.1 Chronic obstructive pulmonary disease with (acute) exacerbation; Z86.73 Personal history of transient ischemic attack (TIA), and cerebral infarction without residual deficits; F17.213 Nicotine dependence, cigarettes, with withdrawal; M19.90 Unspecified osteoarthritis, unspecified site

== ENCOUNTER 2019-10-03 05:43 | Inpatient (IN) | payer OTHER ==
[~2019-10-03] VITALS: Ht 149.9 cm; Wt 67.3 kg
--- NOTE | ~2019-10-03 | CN ---
PATIENT NAME:ELISSA PADILLA MEDICAL RECORD: [id number] : 51 LOCATION:D. D.2134 ADMIT DATE: 10/03/19 ACCOUNT: [id number] CONSULTING PHYSICIAN: LINK HUERTAS MD REFERRING PHYSICIAN: NATACHA KOWALSKI MD DATE OF CONSULTATION: 10/03/2019 CARDIOLOGY CONSULTATION ADMITTING DIAGNOSES: 1. Bradycardia. 2. Shortness of breath, dyspnea on exertion. 3. Sick sinus syndrome. 4. Paroxysmal atrial fibrillation. 5. Chronic obstructive pulmonary disease. 6. Coronary artery disease. 7. Previous cardiac stenting. 8. Hypertension. HISTORY OF PRESENT ILLNESS: Mrs. Padilla presents with shortness of breath, dyspnea on exertion. No chest pain or chest discomfort. She was recently in the hospital with acute coronary syndrome, underwent PTCA stent of the LAD, as well she had atrial fibrillation that was new-onset and she underwent cardioversion. She was placed on sotalol and she was previously on Calan as well for blood pressure. She has been bradycardic to 40 with this. She is symptomatic with shortness of breath with the heart rate being low. Her sotalol was not been given today. Her heart rates now in the 50s. Her Calan as well has not been given. PHYSICAL EXAMINATION: CONSTITUTIONAL/GENERAL APPEARANCE: Well nourished, well developed, appears stated age. EYES: Lids and conjunctivae noninjected. No discharge. No pallor. ENT: Lips within normal limit. No cyanosis. No pallor. NECK: Carotid arteries, bilateral normal upstroke. No bruits. No thrills. No jugular venous pressure or distention. CERVICAL LYMPH NODES: Nontender. Nonenlarged. THYROID: Not enlarged. No nodules. CARDIOVASCULAR: Precordial exam, nondisplaced. No heaves or pericardial thrills. Rate and rhythm, regular. Heart sounds, normal S1, normal S2. No S3, no gallop, no rub. Systolic murmur, not heard. Diastolic murmur, not heard. RESPIRATORY: Respiratory effort, unlabored. Normal curvature. No thoracic deformity. No chest wall tenderness. Percussion, resonant. Auscultation, clear. No wheezes, no rales, no rhonchi. ABDOMEN: Soft, nondistended, nontender. No abdominal pain, no vomiting and normal appetite. MUSCULOSKELETAL: No joint tenderness, normal gait, normal tone. SKIN: Warm and dry. OVERALL IMPRESSION: Shortness of breath, dyspnea on exertion, most likely secondary to the bradycardia with the chronic obstructive pulmonary disease. We will discontinue the sotalol, discontinue the Calan; place her on lisinopril for blood pressure and Rythmol 75 mg b.i.d. for the atrial fibrillation. We will see how this does with her shortness of breath and dyspnea on exertion. If this resolves, she can be discharged home tomorrow. CONSULT REPORT [id number] ELISSA PADILLA SEVEN TRANSINT:[id number] Voice Confirmation ID: [id number] DOCUMENT ID: [id number] LINK HUERTAS MD CC: [id number] DICTATION DATE: 10/03/19 122 CUT OUT PRESS OPERATOR: 10/03/19 1233 ADM IN [id number] [place] [address]
[~2019-10-03 05:43] MED LIST changes: +BETAPACE 80 MG80 MG PO; +PLAVIX75 MG PO
[2019-10-03 06:33] LABS: BASOPHILS 0.1 % (0-2); EOSINOPHILS 0.6 % (0-7); HEMATOCRIT 34.2 % (36.0-48.0); HEMOGLOBIN 9.8 g/dL (12-16); IMMATURE GRANULOCYTES 0.2 % (0-5); LYMPHOCYTES 17.2 % (15-50); MCH 24.6 pg (26.0-34.0); MCHC 28.7 g/dL (31.0-37.0); MCV 85.7 fL (80.0-100.0); MEAN PLATELET VOLUME 8.2 fL (7.4-10.4); MONOCYTES 8.9 % (2-11); PLATELET COUNT 191 10x3/uL (130-400); RBC 3.99 10x6/uL (4.00-5.40); RDW 15.3 % (11.5-14.5); WBC 8.4 10x3/uL (4.8-10.8)
--- NOTE | 2019-10-03 06:44 | NUR ---
PT RESTING ON BED, VISITORS PRESENT AT BEDSIDE.
[2019-10-03 06:47] LABS: CALC OSMOLALITY 279 mosm/kg (275-300); CALCIUM 8.3 mg/dL (8.5-10.1); CARBON DIOXIDE 26.9 mmol/L (21.0-32.0); CHLORIDE - SERUM 106 mmol/L (98-107); CREATININE - SERUM 0.8 mg/dL (0.6-1.3); GLUCOSE 104 mg/dL (74-106); POTASSIUM - SERUM 3.9 mmol/L (3.5-5.1); SODIUM 141 mmol/L (136-145); UREA NITROGEN 10 mg/dL (7-18); eGFR NON AFRICAN AMERICAN 76 mL/min (90-120)
[2019-10-03 06:50] LABS: INR 1.12 (0.85-1.17); PROTIME 13.9 SECONDS (11.6-15.0)
[2019-10-03 06:51] LABS: APTT 32.4 SECONDS (22.8-39.4)
--- NOTE | 2019-10-03 06:55 | NUR ---
REPORT GIVEN TO KADEN ALLEN
[2019-10-03 07:07] LABS: ALBUMIN 3.1 g/dL (3.4-5.0); ALKALINE PHOSPHATASE 106 U/L (46-116); ALT (SGPT) 17 U/L (10-68); CKMB 1.9 U/L (0.0-3.6); CREATINE KINASE 56 UL (21-215); PRO BNP 1876 pg/mL (0-125); PROTEIN - SERUM 6.3 g/dL (6.4-8.2); TROPONIN-I 0.059 ng/mL (0.000-0.060)
[2019-10-03 07:21] VITALS: BP 202/85
[2019-10-03 07:52] VITALS: BP 141/68
--- NOTE | 2019-10-03 08:06 | NUR ---
RESTING WITH EYES CLOSED
--- NOTE | 2019-10-03 08:21 | NUR ---
PT READY FOR TRANSFER, WAITING ON PACKET.
--- NOTE | 2019-10-03 08:48 | NUR ---
CONT. TO WAIT ON PACKET.
[2019-10-03 09:31] VITALS: BP 194/80; BMI 29.9
[2019-10-03 11:28] VITALS: BP 171/72
[2019-10-03 13:04] VITALS: Ht 149.9 cm; Wt 67.3 kg
--- NOTE | 2019-10-03 13:51 | NUR ---
INFORMED PT OF THE NEED FOR A URINE SAMPLE. PROVIDED PT WITH COLLECTION CUP AND WILL HAVE PT NOTIFY NURSE OR SEWAGE DISPOSAL ENGINEER, WHEN SAMPLE IS READY.
[2019-10-03 15:24] LABS: APPEARANCE CLEAR (CLEAR); BILIRUBIN NEGATIVE (NEGATIVE); COLOR YELLOW (YELLOW); GLUCOSE NEGATIVE (NEGATIVE); KETONE NEGATIVE (NEGATIVE); NITRITE NEGATIVE (NEGATIVE); PROTEIN NEGATIVE (NEGATIVE); UROBILINOGEN NORMAL (NORMAL)
[2019-10-03 15:26] LABS: BACTERIA FEW /hpf (NEGATIVE); EPITHELIAL CELLS 0-5 /hpf (0-5); RED CELLS - URINE 0-5 /hpf (0-5); WHITE CELLS - URINE RARE /hpf (NEGATIVE)
[2019-10-03 16:06] VITALS: BP 152/67
--- NOTE | 2019-10-03 20:00 | NUR ---
A/O WITH NO SIGNS OF ACUTE DISTRESS. IV TO THE RT HAND WITH NO REDNESS OR SWELLING NOTED. NC @2L. DENIES NO NEEDS AT THIS TIME. CONTINUE PLAN OF CARE.
[2019-10-03 20:45] VITALS: BP 124/55
[2019-10-04 00:15] VITALS: BP 106/48
[2019-10-04 04:18] VITALS: BP 128/52
[2019-10-04 08:39] VITALS: BP 127/67
--- NOTE | 2019-10-04 08:59 | NUR ---
TEXT INTO FAB REICH APN COVERING FOR DR KOWALSKI FOR DISCHARGE ORDERS. AWAITING REPLY.
--- NOTE | 2019-10-04 09:49 | NUR ---
PT AWAKE AND ORIENTED WHEN I ENTERED ROOM THIS MORNING. STATES SHE'S FEELING MUCH BETTER THIS MORNING AND WANTS TO GO HOME. SPOKE WITH ARTEMIO SANON, PT TO D/C SOMETIME EARLY. CL IN REACH, SRX2.
[2019-10-04] MEDS ORDERED: PROPAFENONE HC150 MG PO (09:50)
--- NOTE | 2019-10-04 09:50 | NUR ---
PATIENT HAS NOT HAD A FLU SHOT THIS YEAR AND WHEN ASKED UPON DISCHARGE, REFUSED.
--- NOTE | 2019-10-04 10:20 | NUR ---
I CALLED AND SPOKE TO [facility] AT [facility] AND GAVE REFILLS (11) FOR PROPAPENONE 150 MG 1/2 TABS BID #30.
--- NOTE | 2019-10-04 13:17 | NUR ---
ESCORTED OUT VIA WHEELCHAIR TO POV, DAUGHTER DRIVING.
--- NOTE | 2019-10-04 14:40 | MORECARE ---
CASE MANAGEMENT DISCHARGE SUMMARY PATIENT: ELISSA STRANGE SEVEN UNIT: [id number] ADM DATE: 10/03/19 AGE: 64 : 53 SEX: F ROOM/BED: D.2134 AUTHOR: TRINITY BISWAS PHYSICIAN: REFERRING PHYSICIAN: NATACHA KOWALSKI MD DATE OF SERVICE: 10/04/19 Discharge Plan Patient Name: ELISSA STRANGE [facility] [facility] 1955 Planned Disposition: Home Anticipated Discharge Date: 10/04/19 Discharge Date: 10/04/2019 Expected LOS: 1 Initial Reviewer: [email or web address] Initial Review Date: 10/04/2019 Generated: 10/04/19 3:40 pm DCPIA - Discharge Planning Initial Assessment Updated by [email or web address]: Seth Morris on 10/04/19 2:38 pm * Is the patient Alert and Oriented? Yes * How many steps to enter\exit or inside your home? * PCP DR. WASHINGTON * Pharmacy [facility] * Preadmission Environment Home with Family * ADLs Independent * Equipment Cane Rolling Walker Wheelchair * Other Equipment BLOOD PRESSURE MONITOR NO MEDICAL EQUIPMENT PROVIDER PREFERENCE * List name and contact numbers for known caregivers / representatives who currently or will assist patient after discharge: ZAINAB STRANGE, SPOUSE, * Verbal permission to speak to the caregivers and representatives has been obtained from the patient. N/A * Community resources currently utilized None * Please name any agencies selected above. NONE * Additional services required to return to the preadmission environment? No * Can the patient safely return to the preadmission environment? Yes * Has this patient been hospitalized within the prior 30 days at any hospital? Yes Patient Name: ELISSA STRANGE Page [phone] at 1440 All edits/amendments must be made on the electronic document DICTATION DATE: 10/04/19 144 PETROLEUM GEOLOGIST: LORETTA 10/04/19 1440 RPT#: [id number] DC DATE:10/04/19 STATUS: DIS IN [facility] [address] [place] [address] END OF REPORT
--- NOTE | 2019-10-04 14:49 | MORECARE ---
CASE MANAGEMENT DISCHARGE SUMMARY PATIENT: ELISSA STRANGE SEVEN UNIT: [id number] ADM DATE: 10/03/19 AGE: 64 : 53 SEX: F ROOM/BED: D.4505 AUTHOR: TRUE,DOC PHYSICIAN: REFERRING PHYSICIAN: NATACHA KOWALSKI MD DATE OF SERVICE: 10/04/19 Discharge Plan Patient Name: ELISSA STRANGE Facility: [facility]:[place] : 1955 Planned Disposition: Home Anticipated Discharge Date: 10/04/19 Discharge Date: 10/04/2019 Expected LOS: 1 Initial Reviewer: [email or web address] Initial Review Date: 10/04/2019 Generated: 10/04/19 3:48 pm Comments DCP- Discharge Planning Updated by [email or web address]: Seth Morris on 10/04/19 1:[address] Patient Name: ELISSA STRANGE Admission Status: Elective Accout number: [id number] Admission Date: 10-03-2019 : 1955 Admission Diagnosis: Attending: NATACHA KOWALSKI Current LOS: 1 Anticipated DC Date: 10-04-2019 Planned Disposition: Home Primary Insurance: [employer] Discharge Planning Comments: CM MET WITH PT IN ROOM TO DISCUSS DISCHARGE PLANNING AND NEEDS. PT REPORTS LIVING AT HOME INDEPENDENTLY WITH HER SPOUSE. PT HAS CANE, BLOOD PRESSURE MONITOR, ROLLING WALKER AND WHEELCHAIR WITH NO MEDICAL EQUIPMENT PROVIDER PREFERENCE. PT HAS NO OUTSIDE SERVICES ASSISTING IN THE HOME. CM DISCUSSED AVAILABILITY OF HOME HEALTH, REHAB SERVICES AND MEDICAL EQUIPMENT. PT DENIES DISCHARGE NEEDS, REPORTS HER DAUGHTER WILL PICK HER UP FOR DISCHARGE HOME. CELL PLASTERER NURSE NOTIFIED. Loan Analyst: Seth Morris DCPIA - Discharge Planning Initial Assessment Updated by [id number]: Seth Morris on 10/04/19 2:38 pm * Is the patient Alert and Oriented? Yes * How many steps to enter\exit or inside your home? * PCP DR. WASHINGTON * Pharmacy [facility] * Preadmission Environment Home with Family * ADLs Independent * Equipment Cane Rolling Walker Wheelchair * Other Equipment BLOOD PRESSURE MONITOR NO MEDICAL EQUIPMENT PROVIDER PREFERENCE * List name and contact numbers for known caregivers / representatives who currently or will assist patient after discharge: ZAINAB STRANGE, SPOUSE, * Verbal permission to speak to the caregivers and representatives has been obtained from the patient. N/A * Community resources currently utilized None * Please name any agencies selected above. NONE * Additional services required to return to the preadmission environment? No * Can the patient safely return to the preadmission environment? Yes * Has this patient been hospitalized within the prior 30 days at any hospital? Yes Last DP export: 10/04/19 1:40 Patient Name: ELISSA STRANGE Page 70794 at 1449 All edits/amendments must be made on the electronic document DICTATION DATE: 10/04/191448 COTTON TIPPER: LORETTA 10/04/191448 RPT#: [id number] DC DATE:10/04/19 STATUS: DIS IN [facility] [address] [place] [address] END OF REPORT
== END 2019-10-04 13:18 | disposition home or self-care (01) | DRG 309 ==
LOC: D.ER 05:43 → D.M2 07:04 → D.ER 08:18 → D.M2 10-04 13:18
PROVIDERS: Family Medicine; ADMIT Internal Medicine Nephrology; ATTEND Internal Medicine Nephrology
DX: I49.5 Sick sinus syndrome (principal); F17.213 Nicotine dependence, cigarettes, with withdrawal; I48.0 Paroxysmal atrial fibrillation; J44.9 Chronic obstructive pulmonary disease, unspecified; I25.10 Atherosclerotic heart disease of native coronary artery without angina pectoris; K21.9 Gastro-esophageal reflux disease without esophagitis; I10 Essential (primary) hypertension; Z86.73 Personal history of transient ischemic attack (TIA), and cerebral infarction without residual deficits

== ENCOUNTER 2019-12-02 12:01 | Emergency (ER) | payer OTHER ==
[~2019-12-02] VITALS: Ht 149.9 cm; Wt 73.7 kg
[~2019-12-02 12:01] MED LIST changes: +PROPAFENONE HC150 MG PO
[2019-12-02 12:15] VITALS: Ht 149.9 cm; Wt 73.7 kg
[2019-12-02 12:43] LABS: BASOPHILS 0.2 % (0-2); EOSINOPHILS 0.6 % (0-7); HEMATOCRIT 35.2 % (36.0-48.0); HEMOGLOBIN 10.4 g/dL (12-16); IMMATURE GRANULOCYTES 0.2 % (0-5); LYMPHOCYTES 26.1 % (15-50); MCH 25.2 pg (26.0-34.0); MCHC 29.5 g/dL (31.0-37.0); MCV 85.4 fL (80.0-100.0); MEAN PLATELET VOLUME 8.3 fL (7.4-10.4); NEUTROPHILS 62.9 % (40-80); RBC 4.12 10x6/uL (4.00-5.40); RDW 15.5 % (11.5-14.5); WBC 6.5 10x3/uL (4.8-10.8)
[2019-12-02 13:02] LABS: CALC OSMOLALITY 285 mosm/kg (275-300); CALCIUM 8.8 mg/dL (8.5-10.1); CARBON DIOXIDE 27.7 mmol/L (21.0-32.0); CHLORIDE - SERUM 105 mmol/L (98-107); CREATININE - SERUM 0.7 mg/dL (0.6-1.3); GLUCOSE 90 mg/dL (74-106); INR 0.98 (0.85-1.17); POTASSIUM - SERUM 4.2 mmol/L (3.5-5.1); PROTIME 12.9 SECONDS (11.6-15.0); SODIUM 143 mmol/L (136-145); UREA NITROGEN 14 mg/dL (7-18); eGFR NON AFRICAN AMERICAN 89 mL/min (90-120)
[2019-12-02 13:03] LABS: APTT 32.9 SECONDS (22.8-39.4)
[2019-12-02 13:10] LABS: PLATELET COUNT 230 10x3/uL (130-400)
[2019-12-02 13:25] LABS: ALBUMIN 3.7 g/dL (3.4-5.0); ALKALINE PHOSPHATASE 138 U/L (30-120); ALT (SGPT) 29 U/L (10-68); BILIRUBIN - TOTAL 0.26 mg/dL (0.2-1.3); CKMB 2.1 U/L (0.0-3.6); CREATINE KINASE 72 UL (21-215); PRO BNP 2760 pg/mL (0-125); PROTEIN - SERUM 6.9 g/dL (6.4-8.2)
[2019-12-02 13:39] LABS: TROPONIN-I 0.075 ng/mL (0.000-0.060)
[2019-12-02 15:19] VITALS: BP 123/81
== END 2019-12-02 15:31 | disposition home or self-care (01) ==
LOC: D.ER 12:01
PROVIDERS: Emergency Medicine
DX: R06.00 Dyspnea, unspecified (principal); D64.9 Anemia, unspecified; I10 Essential (primary) hypertension; I48.91 Unspecified atrial fibrillation; J44.9 Chronic obstructive pulmonary disease, unspecified; Z87.891 Personal history of nicotine dependence

== ENCOUNTER → 2020-05-17 13:39 | Outpatient (CLI) | payer OTHER ==
[2019-12-02 12:15] VITALS: BMI 32.8
--- NOTE | ~2020-05-17 | EC ---
PATIENT:ELISSA STRANGE DATE OF SERVICE: 05/17/20 SEX: F MEDICAL RECORD: [id number] DATE OF : [birth year] LOCATION:D.[facility] AGE OF PATIENT: 65 ADMISSION DATE: 05/17/20 REFERRING PHYSICIAN: INTERPRETING PHYSICIAN: NEETA GONZALES MD ECHOCARDIOGRAM REPORT ECHO CHARGES 4 ECHO COMPLETE Date: 05/17/20 CLINICAL DIAGNOSIS: CAD/ATRIAL FIB ECHOCARDIOGRAPHIC MEASUREMENTS (adult normal given) AC root (d.<3.7cm) 2.7 cm LV Septum d (<1.2 cm> 1.1 cm Valve Excursion 1.2 cm LV Septum (systole) 1.3 cm Left Atria (s.<4.0cm> 4.2 cm LVPW d(<1.2cm) 1.3 cm RV (d.<2.3cm) 3.5 cm LVPW (sytole) 1.5 cm LV diastole(<5.6CM) 4.6 cm MV E-F(>70mm/sec) cm LV systole 3.4 cm LVOT Diameter 1.7 cm MV exc.(>10mm) 1.0 cm Est.ejection fraction (50-75%) % DOPPLER: LVIT cm/sec A cm/sec E 159.0 cm/sec LA cm/sec RVSP 44 mmHg LVOT 97 cm/sec AOP1/2T m/s Asc. Ao 122 cm/sec RVOT 82 cm/sec RA cm/sec PA 118 cm/sec AV Gradient Peak 5.96 mmHg AV Mean 3.55 mmHg AV Area 1.7 cm MV Gradient Peak 16.42mmHg MV Mean 4.80 mmHg MV Area cm COMMENTS: Gamb Cutter: 2 RK STEEN Spd Manager: 3 Dr. Wu TAPE# PACS Pericardial Effusion N DATE OF SERVICE: Adequate 2D, color flow imaging, spectral Doppler and M-mode. No LVH. LV internal dimensions are normal. Wall motion is normal. EF is greater than or equal to 55%. Aortic valve is tricuspid. No evidence of stenosis by Doppler interrogation. Left atrium is minimally dilated at 4.2 cm. Mitral valve is thickened with mild restriction of leaflet motion. Peak gradient of 60 mmHg. There is evidence of mild to moderate MS range. Mild MR present as well. Right-sided chambers are grossly normal. Moderate TR. ECHOCARDIOGRAM REPORT [id number] ELISSA STRANGE TRANSINT:[id number] Voice Confirmation ID: [id number] DOCUMENT ID: [id number] NEETA GONZALES MD CC: [id number] DICTATION DATE: 05/18/20 1337 RESPIRATORY CARE TECHNICIAN: 05/19/20 0007 DEP CLI 05/17/20 [id number] [place] [id number]
== END | disposition home or self-care (01) ==
LOC: D.HCCECHO 13:30
PROVIDERS: ATTEND Internal Medicine Interventional Cardiology
DX: I25.10 Atherosclerotic heart disease of native coronary artery without angina pectoris (principal)

== ENCOUNTER 2020-06-08 10:58 | Day surgery (SDC) | payer OTHER ==
[~2020-06-08] VITALS: Ht 149.9 cm; Wt 78.4 kg
--- NOTE | ~2020-06-08 | HEMODYNAMI ---
PATIENT:ELISSA STRANGE MEDICAL RECORD: [id number] : 51 LOCATION:[facility] ADMISSION DATE: 06/08/20 Generatedon:06/08/202013:07 Patient name: ELISSA STRANGE Patient #: [id number] SSN : [id number] : 1955 Date of study: 06/08/2020 Page: Of Hemodynamic Procedure Report Patient Data Patient Demographics Procedure consent was obtained First Name: ELISSA Gender: Female Last Name: ALIE : 1955 [facility] Initial: SEVEN Age: 65 year(s) Patient #: [id number] Race: SSN: [id number] Additional ID: [id number] Contact details [address]: [address] [place] [address] State: [place] City: [place] Zip code: [address] Past Medical History Allergies: No known allergies Admission Admission Data Admission Date: 06/08/2020 Admission Time: 10:58 Arrival Date: 06/08/2020 Arrival Time: 0:00 Admit Source: Other Height (in.): 59.06 BSA: 1.73 (m2) Height (cm.): 150 BMI: 34.67 (kg/m2) Weight (lbs.): 171.96 Weight (kg.): 78 Lab Results Lab Result Date: 06/08/2020 Lab Result Time: 0:00 Biochemistry Name Units Result Min Max BUN mg/dl 12 --(-*--)-- 7 18 Creatinine mg/dl 0.9 --(-*--)-- 0.6 1.3 eGFR ml/min 66 *-(----)-- 90 120 NONAFRICAN Procedure Procedure Types Cath Procedure Diagnostic Procedure Cardioversion External Procedure Description Procedure Date Procedure Date: 06/08/2020 Procedure Start Time: 12:57 Procedure End Time: 13:05 Procedure Staff Name Function Gucci Arthur MD Performing Physician Flavia Faith RN Nurse Rylee Mccabe RT Monitor Jyoti Hoffmann RT Product Expertritu Jc CRNA Additional personnel Procedure Data Procedure Complications No complications Procedure Medications Medication Administration Route Dosage 0.9% NaCl I.V. 100 ml/hr Oxygen NC 3 l/min Refer to Anesthesia Notes for Sedation Medications Hemodynamics Rest BSA: 1.73 (m2) O2 Consumption: Estimated: 173.93 (ml/min) O2 Consumption indexed : Estimated:100.54 (ml/min/m) Heart Rate: 90 (bpm) Snapshots Pre Cath Intra NCS Post Cath Vital Signs Time Heart Resp SPO2 etCO2 NIBP (mmHg) Rhythm Pain Sedation Rate (ipm) (%) (mmHg) Status Level (bpm) 12:36:35 67 13 100 30.6 Measuring NSR 0 (11) 10(A) , No pain 12:37:26 85 21 100 26.9 133/105(120) NSR 0 (11) 10(A) , No pain 12:42:25 85 35 98 29.1 Measuring NSR 0 (11) 10(A) , No pain 12:43:49 101 23 99 29.9 Time NSR 0 (11) 10(A) Exceeded , No pain 12:47:51 112 43 100 29.9 105/70(85) NSR 0 (11) 10(A) , No pain 12:52:09 91 18 100 31.4 100/74(85) NSR 0 (11) 10(A) , No pain 12:56:27 66 19 100 29.2 91/58(79) NSR 0 (11) 10(A) , No pain 13:00:47 71 24 96 30.7 96/47(64) NSR 0 (11) 10(A) , No pain 13:03:56 74 26 96 26.9 105/42(49) NSR 0 (11) 10(A) , No pain Medications Time Medication Route Dose Verified Delivered Reason Notes Effectiven ess by by 12:35:00 0.9% NaCl I.V. 100 Gucci Alejandro used for ml/hr Trenton Marcell procedure RN 12:35:10 Oxygen NC 3 Gucci Alejandro for low l/min Trenton Marcell 02 sats RN 12:35:24 Refer to Gucci Duckworth for Anesthesia [facility] sedation Notes for MD ALVES Sedation Medications Procedure Log Time Note 12:24:46 Informed consent obtained and on chart 12:24:51 Admit Source: Other 12:25:58 Flavia Faith RN sent for patient. Start room use. 12:25:59 Time tracking: Regular hours (M-F 7:00 - 5:00) 12:26:02 Plan of Care:Hemodynamics will remain stable., Cardiac rhythm will remain stable., Comfort level will be maintained., Respiratory function will remain adequate., Patient/ family verbilizes understanding of procedure., Procedure tolerated without complication., Recovers from procedure without complications.. 12:30:03 Masood Jc CRNA present and monitoring patient for TIVA. 12:30:21 Patient arrived from Pre/Post Procedure Room to CCL 1. Patient remains on bed/stretcher for procedure. 12:30:23 Warm blankets applied, and love hugger turned on for patient comfort. 12:30:24 Correct patient and procedure confirmed by team. 12:30:25 ECG and BP/O2 sat monitors applied to patient. 12:30:43 H&P Date Dictated: 06/08/2020 H&P Addendum completed by physician on day of procedure. (MUST COMPLETE FOR ALL OUTPATIENTS), New H&P dictated by physician.. 12:30:45 Pre-procedure instructions explained to patient. 12:30:46 Pre-op teaching completed and patient verbalized understanding. 12:31:25 Family in patients room. 12:31:28 Patient NPO since Midnight. 12:31:38 Patient allergic to No known allergies 12:32:01 Is the patient allergic to Iodine/contrast media? No. 12:32:04 Was the patient premedicated? Yes 12:32:07 Is patient on blood thinner?Yes 12:32:14 ACC The patient was administered the following blood thiners within the last 24 hours: Eliquis 12:32:18 Patient diabetic? No. 12:32:26 ----Pre-sedation anethsthesia assessment.---- 12:32:30 Previous problem with sedation/anesthesia? No ? 12:32:32 Snore? Yes 12:32:35 Sleep apnea? No 12:32:38 Deviated septum? Unknown 12:32:42 Opens mouth fully? Yes 12:32:45 Sticks out tongue? Yes 12:32:55 Airway obstruction? Yes COPD 12:33:06 Dentures? Yes IN TIGHT 12:33:33 IV patent on arrival in right antecubital with 0.9% NaCl at [facility]. 12:34:35 Lab Result : BUN 12 mg/dl 12:34:35 Lab Result : Creatinine 0.9 mg/dl 12:34:35 Lab Result : eGFR NONAFRICAN 66 ml/min 12:34:46 Vital chart was started 12:34:51 Baseline sample Acquired. 12:34:56 Rhythm: atrial fibrillation 12:34:58 Full Disclosure recording started 12:35:00 0.9% NaCl 100 ml/hr I.V. was administered by Flavia Faith RN; used for procedure; Verbal order read back and verified. 12:35:10 Oxygen 3 l/min NC was administered by Flavia Faith RN; for low 02 sats; Verbal order read back and verified. 12:35:24 Refer to Anesthesia Notes for Sedation Medications was administered by Gucci Arthur MD; for sedation; Verbal order read back and verified. 12:36:24 Quick Combo opened to sterile field. 12:36:30 Quick combo pads placed on patients chest and back. 12:39:47 Patient Height : 59.06 inches 12:40:11 Patient Weight : 171.96 lbs 12:40:26 Arrival Date: 06/08/2020 12:00:00 AM 12:56:29 Physician arrived 12:56:29 --------ALL STOP TIME OUT------ 12:56:30 Final Timeout: patient, procedure, and site verified with staff and physician. All members of the team are in agreement. 12:56:40 Fire Safety Assessment: A--An alcohol-based skin anteseptic being used preoperatively., C--Open oxygen or nitrous oxide is being used., E--There are other possible contributors. 12:56:52 Physical assessment completed. ASA score P 3 - A patient with severe systemic disease as per Gucci Arthur MD. 12:56:59 Sedation plan: TIVA Medication:Propofol 12:57:36 Procedure started. 12:57:39 ------Cardioversion------ 12:58:33 Defibrillator synced and charged to 200 Joules. 12:58:37 Shock delivered. 12:59:50 Defibrillator synced and charged to 360 Joules. 12:59:52 Shock delivered. 13:00:35 Patient cardioverted to sinus rhythm . 13:00:50 Procedure ended.(Physican Out) 13:03:48 Post-procedure physical assessment completed. ASA score P 3 - A patient with severe systemic disease as per Gucci Arthur MD. 13:03:52 Post procedure rhythm: sinus rhythm 13:03:58 Post procedure instruction explained to patient.Patient verbalizes understanding. 13:03:59 Patient needs reinforcement of post procedure teaching. 13:04:11 Procedure and supply charges have been captured, reviewed, submitted and are correct. 13:04:38 Procedure Complication : No complications 13:04:42 Vital chart was stopped 13:05:23 See physician's report for complete and final results. 13:05:26 Report given to Pre/Post Procedure Room. 13:05:36 Patient transfered to Pre/Post Procedure Room with Stretcher. 13:05:39 Procedure ended. 13:05:39 Full Disclosure recording stopped 13:05:44 End room use (Document Last) Device Usage Item Manufacture Quantity Catalog Hospital Part Current Minimal Lot# / Name Number Charge Number Stock Stock Seri al# Code [employer] Software 1 [id number] Combo Signature Audit [place] Stage Time Signature Unsigned Intra-Procedure 06/08/2020 Rylee 1:06:07 PM Eliot RT(R) (CV) Intra-Procedure 06/08/2020 Flavia 1:07:11 PM Marcell RN Intra-Procedure 06/08/2020 Gucci Jaimes 1:07:41 PM Varun ALVES [address] [address]
[2020-06-08] MEDS ORDERED: ELIQUIS5 MG PO (11:35)
[2020-06-08] MEDS ORDERED: FUROSEMIDE40 MG PO (11:35)
[2020-06-08 11:57] VITALS: BP 150/96; Ht 149.9 cm; Wt 78.4 kg
[2020-06-08 12:28] LABS: ANION GAP 11.2 mmol/L (8-16); CALCIUM 9.2 mg/dL (8.5-10.1); CARBON DIOXIDE 28.1 mmol/L (21.0-32.0); CREATININE - SERUM 0.9 mg/dL (0.6-1.3); POTASSIUM - SERUM 4.3 mmol/L (3.5-5.1)
[2020-06-08 12:32] LABS: BASOPHILS 0.2 % (0-2); EOSINOPHILS 0.9 % (0-7); HEMATOCRIT 43.5 % (36.0-48.0); HEMOGLOBIN 14.2 g/dL (12-16); IMMATURE GRANULOCYTES 0.3 % (0-5); LYMPHOCYTES 19.6 % (15-50); MCH 29.8 pg (26.0-34.0); MCHC 32.6 g/dL (31.0-37.0); MCV 91.4 fL (80.0-100.0); MEAN PLATELET VOLUME 8.7 fL (7.4-10.4); MONOCYTES 11.5 % (2-11); NEUTROPHILS 67.5 % (40-80); RBC 4.76 10x6/uL (4.00-5.40); RDW 12.7 % (11.5-14.5); WBC 6.6 10x3/uL (4.8-10.8)
[2020-06-08 12:33] LABS: PLATELET COUNT 165 10x3/uL (130-400)
[2020-06-08 12:39] LABS: INR 1.21 (0.85-1.17); PROTIME 15.2 SECONDS (11.6-15.0)
--- NOTE | 2020-06-08 13:10 | NUR ---
PT REC'D TO CARE VIA STRETHCER FROM BLASTING CAP ASSEMBLER. MONITORS ESTAB. AT BS, DR. GONZALES IN TO UPDATE PT. SEE HOMEOWNER ASSOCIATION MANAGER. ALARMS ON AND C/L IN REACH.
[2020-06-08] MEDS ORDERED: LANOXIN125 MCG PO (13:20)
--- NOTE | 2020-06-08 13:25 | NUR ---
CM - SR OCC PAC NOTED, HR 61, B/P 115/44. PT RESTING QUIETLY. NEW PRESCRIPTION CALLED IN TO [facility] FOR DIGOXIN. ALARMS ON AND C/L IN REACH.
--- NOTE | 2020-06-08 13:57 | NUR ---
DISCHARGE INSTRUCTIONS REVIEWED WITH PT AND . - CM FROM SR TO AFIB WHILE I WAS AT BS. B/P JUAN DIEGO, JEANETTE HAMMER RN IN SOCIAL MEDIA CONTENT SPECIALIST - NOTIFIED.
--- NOTE | 2020-06-08 14:01 | NUR ---
NAKUL PENNINGTON APN HERE, NOTIFIED OF AFIB, HR 109, B/P 106/63. IN TO TALK WITH PT.
--- NOTE | 2020-06-08 14:05 | NUR ---
NEW ORDER REC'D FROM NAKUL PENNINGTON APN FOR 1 TIME DOSE OF DIGOXIN AND OK TO DISCHARGE PT HOME.
--- NOTE | 2020-06-08 14:16 | NUR ---
PO DIGOXIN GIVEN PER MD ORDER - SEE EMAR. PIV D/C'D INTACT, DSG APPLIED. PT ALLOWED UP TO GET DRESSED AND GO TO BR INDEPENDENTLY.
--- NOTE | 2020-06-08 14:20 | NUR ---
PT D/C'D TO PRIVATE VEHICLE WITH ALL PAPERWORK AND BELONGINGS. WELL DIGOXIN INFORMATION.
--- NOTE | 2020-06-09 08:47 | OP ---
PATIENT NAME: DIA PADILLA MEDICAL RECORD: [id number] :51 LOCATION:[facility] ADMISSION DATE: SURGEON: ENETA GONZALES MD DATE OF OPERATION: 06/08/2020 PROCEDURE: Cardioversion. INDICATION: Atrial fibrillation. DESCRIPTION OF PROCEDURE: After general sedation via TIVA via anesthesia, a single synchronized shock initially at 200 joules was unsuccessful in restoring normal sinus rhythm. Second synchronized shocks at 360 joules showed restored normal sinus rhythm from atrial fibrillation. IMPRESSION: Successful cardioversion on Dia Padilla. During the procedure, the patient monitored continuously with pulse oximetry, telemetry, and noninvasive blood pressure monitoring. 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
== END 2020-06-08 14:20 | disposition home or self-care (01) ==
LOC: D.CATH 10:58
PROVIDERS: ATTEND Internal Medicine Interventional Cardiology
DX: I48.91 Unspecified atrial fibrillation (principal); I25.10 Atherosclerotic heart disease of native coronary artery without angina pectoris; I10 Essential (primary) hypertension; E78.5 Hyperlipidemia, unspecified

== ENCOUNTER 2020-12-13 07:03 | Day surgery (SDC) | payer OTHER ==
[~2020-12-13] VITALS: Ht 149.9 cm; Wt 83.4 kg
--- NOTE | ~2020-12-13 | HEMODYNAMI ---
PATIENT:ELISSA STRANGE MEDICAL RECORD: [id number] : 51 LOCATION:DMariiCAT ADMISSION DATE: 12/13/20 Generatedon:19:43 Patient name: ELISSA STRANGE Patient #: [id number] SSN : [id number] : 1955 Date of study: 12/13/2020 Page: Of Hemodynamic Procedure Report Patient Data Patient Demographics Procedure consent was obtained First Name: ELISSA Gender: Female Last Name: ALIE : 1955 [facility] Initial: SEVEN Age: 65 year(s) Patient #: [id number] Race: SSN: [id number] Additional ID: [id number] Contact details Address: [address] [place] [address] State: [place] City: [place] Zip code: [address] Past Medical History Allergies: No known allergies Admission Admission Data Admission Date: 12/13/2020 Admission Time: 7:03 Admit Source: Other Insurance Payor: Medicare Height (in.): 72.24 BSA: 2.06 (m2) Height (cm.): 183.5 BMI: 24.77 (kg/m2) Weight (lbs.): 183.87 Weight (kg.): 83.4 Procedure Procedure Types Cath Procedure Diagnostic Procedure Right Heart RHC and LHC w/Coronaries Procedure Description Procedure Date Procedure Date: 12/13/2020 Procedure Start Time: 9:18 Procedure End Time: 9:41 Procedure Staff Name Function Gucci Arthur MD Performing Physician Marisa Newton RT Monitor Maria Esther Scruggs RT Scrub Romero Holman RN Nurse Procedure Data Cath Procedure Fluoroscopy Diagnostic fluoroscopy Total fluoroscopy Time: 1.9 time: 1.9 min min Diagnostic fluoroscopy Total fluoroscopy dose: 304 dose: 304 mGy mGy Contrast Material Contrast Material Type Amount (ml) Isovue 370 44 Entry Location Entry Primary Successful Side Size Upsize Upsize Entry Closure Roberts ccessful Closure Location (Fr) 1 (Fr) 2 (Fr) Remarks Device Remarks Femoral Right 5 Fr Exoseal artery Femoral Right 7 Fr Manual vein Short Compression Estimated blood loss: 5 ml Diagnostic catheters Device Type Used For End Catheter Placement MULTIPACK JL 4.0 5Fr Left Coronary catheter Angiography MULTIPACK 3DRC 5Fr Right Coronary catheter Angiography SWAN 7Fr Thermodilution cather (131F7P) MULTIPACK Pigtail 5 Fr LV Angiography catheter Procedure Complications No complications Procedure Medications Medication Administration Route Dosage 0.9% NaCl I.V. 100 ml/hr Oxygen etCO2 Nasal cannula 2 l/min Heparin Flush Bag added to field 2 bags (1000units/500ml NS) Lidocaine 2% added to field 20 Versed I.V. 2 mg Fentanyl I.V. 100 mcg Hemodynamics Rest BSA: 2.06 (m2) O2 Consumption: Estimated: 210.79 (ml/min) O2 Consumption indexed : Estimated:102.33 (ml/min/m) Heart Rate: 95 (bpm) Pressure Samples Time Site Value (mmHg) Purpose Heart Use Rate(bpm) 9:24 PCW 35/40(32) Snapshot 86 9:24 PCW 39/52(43) Snapshot 91 9:25 PA 63/49(52) Snapshot 89 9:30 RV 65/27,30 Snapshot 93 9:31 RA 27/31(27) Snapshot 86 9:31 RA 29/27(26) Snapshot 94 9:35 LV 108/24,24 Snapshot 91 9:36 AO 151/73(113) Pullback 98 9:36 LV 140/15,19 Pullback 98 Gradients Valve Time Site 1 Site 2 Mean SEP/DFP Peak To Heart Use (mmHg) (sec/min) Peak Rate (mmHg) (bpm) Aortic 9:36 LV AO 0 9 0 98 140/15,19 151/73(113) Thermodilution Cardiac Output Time Cardiac Output (l/min) Use 9:27 3.33 l/m 9:28 5.63 l/m 9:28 2.66 l/m 9:29 3.6 l/m 9:29 3.94 l/m Calculations Vascular Value Indexed CO SV CO CI Resistance (dyne) values (ml/beat) (l/min) (l/(min*m)) TSVR 2497.7 5145.26 Thermal 39.53 3.62 1.8 SVR 1916.05 3947.06 TPVR 1156.39 2382.16 PVR 217.34 447.72 PVR/SVR 0.11 Systolic Diastolic Ejection Regurgitation SW SWI TPVR/TSVR 0.46 Vol. Vol. (%) (%) Source Thermal Left 35 .22 17.1 Right 14.42 7 Source Thermal Valve P-P Mean Valve Index Valve Source Name Gradient Area Flow (cm2) Aortic 0 0 385.46 Thermal 0 0 Snapshots Thermal Samples Pre Cath Intra NCS Post Cath Vital Signs Time Heart Resp SPO2 etCO2 NIBP (mmHg) Rhythm Pain Sedation Rate (ipm) (%) (mmHg) Status Level (bpm) 8:45:38 91 21 100 31.7 150/89(126) A-Fib 0 (11) 10(A) , No pain 8:50:00 80 24 100 30.9 143/86(115) A-Fib 0 (11) 10(A) , No pain 8:54:24 92 21 100 32.4 141/79(123) A-Fib 0 (11) 10(A) , No pain 8:58:38 93 15 97 39.2 131/81(102) A-Fib 0 (11) 10(A) , No pain 9:02:53 86 13 95 38.4 128/77(106) A-Fib 0 (11) 10(A) , No pain 9:07:11 96 12 95 40.7 135/73(103) A-Fib 0 (11) 10(A) , No pain 9:11:28 89 12 95 46 134/81(115) A-Fib 0 (11) 10(A) , No pain 9:15:48 85 12 95 34.6 142/79(94) A-Fib 0 (11) 9(A) , No pain 9:19:59 91 10 93 50.5 119/68(112) A-Fib 0 (11) 9(A) , No pain 9:24:04 101 10 92 46 118/90(100) A-Fib 0 (11) 9(A) , No pain 9:28:12 86 19 94 52.7 132/94(101) A-Fib 0 (11) 9(A) , No pain 9:32:30 97 16 94 44.5 135/78(121) A-Fib 0 (11) 10(A) , No pain 9:36:46 85 13 95 45.2 145/91(117) A-Fib 0 (11) 10(A) , No pain 9:41:06 84 17 95 43 143/82(112) A-Fib 0 (11) 10(A) , No pain Medications Time Medication Route Dose Verified Delivered Reason Notes Effe ctiveness by by 8:45:22 0.9% NaCl I.V. 100 Romero Romero Per ml/hr River Holman physician RN RN 8:45:30 Oxygen etCO2 2 Romero Romero for low 02 Nasal l/min Lorigan Lorigan sats cannula RN RN 8:45:41 Heparin Flush added 2 Romero Romero used for Bag to bags Lorigan Lorigan procedure (1000units/500ml field RN RN NS) 8:45:52 Lidocaine 2% added 20ml Romero Romero for local to vial Lorigan Lorigan anesthetic field RN RN 9:18:39 Versed I.V. 2 mg Romero Romero for Lorigan Lorigan sedation RN RN 9:18:48 Fentanyl I.V. 100 Romero Romero for mcg Lorigan Lorigan sedation RN program facilitator Log Time Note 8:16:21 Diagnostic Cath Status : Elective 8:16:46 Informed consent obtained and on chart 8:30:13 Maria Esther Scruggs RT(R) sent for patient. Start room use. 8:37:12 Admit Source: Other 8:37:41 Insurance Payor : Medicare 8:38:22 Time tracking: Regular hours (M-F 7:00 - 5:00) 8:38:27 Plan of Care:Hemodynamics will remain stable., Cardiac rhythm will remain stable., Comfort level will be maintained., Respiratory function will remain adequate., Patient/ family verbilizes understanding of procedure., Procedure tolerated without complication., Recovers from procedure without complications.. 8:38:32 Patient received from Pre/Post Procedure Room to CCL 2 Alert and oriented. Tansferred to table in Supine position. 8:38:35 Warm blankets applied, and love hugger turned on for patient comfort. 8:38:35 Correct patient and procedure confirmed by team. 8:38:36 ECG and BP/O2 sat monitors applied to patient. 8:38:41 Baseline sample Acquired. 8:44:16 Rhythm: sinus rhythm 8:44:18 Vital chart was started 8:44:20 Baseline sample Acquired. 8:44:46 H&P Date Dictated: 12/06/2020 Within 30 days and on chart., H&P Addendum completed by physician on day of procedure. (MUST COMPLETE FOR ALL OUTPATIENTS). 8:44:59 Pre-procedure instructions explained to patient. 8:45:00 Pre-op teaching completed and patient verbalized understanding. 8:45:03 Family in patients room. 8:45:06 Patient NPO since Midnight. 8:45:15 Is the patient allergic to Iodine/contrast media? No. 8:45:22 0.9% NaCl 100 ml/hr I.V. was administered by Romero Holman RN; Per physician; Verbal order read back and verified. 8:45:28 Is patient on blood thinner?Yes 8:45:30 Oxygen 2 l/min etCO2 Nasal cannula was administered by Romero Holman RN; for low 02 sats; Verbal order read back and verified. 8:45:38 ACC The patient was administered the following blood thiners within the last 24 hours: Eliquis 8:45:41 Heparin Flush Bag (1000units/500ml NS) 2 bags added to field was administered by Romero Holman RN; used for procedure; Verbal order read back and verified. 8:45:52 Lidocaine 2% 20ml vial added to field was administered by Romero Holman RN; for local anesthetic; Verbal order read back and verified. 8:47:45 Patient diabetic? No. 8:47:50 Previous problem with sedation/anesthesia? No ? 8:48:09 Snore? Yes 8:48:10 Sleep apnea? No 8:48:13 Deviated septum? No 8:48:15 Opens mouth fully? Yes 8:48:16 Sticks out tongue? Yes 8:48:20 Airway obstruction? Yes COPD 8:48:25 Dentures? Yes in tight 8:48:30 Pre procedure: right dorsailis pedis pulse 2+ Normal; easily identifiable; not easily obliterated 8:48:34 Patient pain scale 0/10 ?. 8:52:18 IV patent on arrival in left hand with 0.9% NaCl at KVO. 8:52:26 Lab results completed and on chart. 8:52:35 Stress Test: no; N/A ? 8:55:00 Risk of IDANIA: 15.7 8:55:03 Right groin area was prepped with chlora-prep and draped in sterile fashion 8:55:04 Alarms reviewed by R. N. 8:55:04 Sharps counted by scrub and verified by R.N. 8:56:20 3a) 45-59 Moderately reduced kidney function. 8:56:29 Maximum allowable contrast dose (3.7 X eGFR X 0.75)161 ml. 8:58:56 Zero performed for pressure channel P1 9:03:03 Patient Height : 72.24 inches 9:03:07 Patient Weight : 183.87 lbs 9:15:48 Maria Esther Scruggs RT(R) was relieved by Marisa Newton RT(R) as monitoring person 9:18:18 Final Timeout: patient, procedure, and site verified with staff and physician. All members of the team are in agreement. 9:18:20 Right groin site verified by team. 9:18:28 Fire Safety Assessment: A--An alcohol-based skin anteseptic being used preoperatively., C--Open oxygen or nitrous oxide is being used., D--An ESU, laser, or fiber-optic light is being used. 9:18:32 Physical assessment completed. ASA score P 2 - A patient with mild systemic disease as per Gucci Arthur MD. 9:18:35 Sedation plan: IV Moderate Sedation Medication:Versed, Fentanyl 9:18:39 Versed 2 mg I.V. was administered by Romero Holman RN; for sedation; Verbal order read back and verified. 9:18:47 Procedure started. 9:18:47 Full Disclosure recording started 9:18:48 Fentanyl 100 mcg I.V. was administered by Romero Holman RN; for sedation; Verbal order read back and verified. 9:18:51 Local anesthetic to right femoral artery with Lidocaine 2% by Gucci Arthur MD.INITIAL ACCESS ONLY 9:19:19 A 5 Fr sheath was inserted into the Right Femoral artery 9:21:09 A 7 Fr Short sheath was inserted into the Right Femoral vein 9:21:44 [place] "C" tip catheter inserted 9:27:20 Thermodilution performed using a Negron 131F7 7.0 Fr 19-22C 10.00 mL. Injectate temperature was 21.30 C, CO: 3.33 L/min, average CO: 3.62 L/min 9:28:02 Thermodilution performed using a Negron 131F7 7.0 Fr 19-22C 10.00 mL. Injectate temperature was 20.74 C, CO: 5.63 L/min, average CO: 3.62 L/min 9:28:47 Thermodilution performed using a Negron 131F7 7.0 Fr 19-22C 10.00 mL. Injectate temperature was 20.52 C, CO: 2.66 L/min, average CO: 3.62 L/min 9:29:20 Thermodilution performed using a Negron 131F7 7.0 Fr 19-22C 10.00 mL. Injectate temperature was 20.21 C, CO: 3.60 L/min, average CO: 3.62 L/min 9:29:57 Thermodilution performed using a Negron 131F7 7.0 Fr 19-22C 10.00 mL. Injectate temperature was 19.96 C, CO: 3.94 L/min, average CO: 3.62 L/min 9:31:34 Right heart pressures obtained. 9:31:35 Cardiac outputs were obtained. 9:31:37 [place] removed. 9:32:29 A MULTIPACK JL 4.0 5Fr catheter was advanced over the wire and used for Left Coronary Angiography. 9:33:22 Catheter removed. 9:33:30 DIAGNOSTIC Multipack 5Fr catheter set ([id number]) opened to sterile field. 9:33:37 A MULTIPACK 3DRC 5Fr catheter was advanced over the wire and used for Right Coronary Angiography. 9:33:40 SHEATH 5FR [place] ([id number]) opened to sterile field. 9:33:41 SHEATH 7FR [place] (XFH404) opened to sterile field. 9:33:45 A SWAN 7Fr Thermodilution cather (131F7P) was advanced over the wire and used for . 9:34:28 Catheter removed. 9:34:32 EMERALD Guide Wire (539-672) opened to sterile field. 9:34:39 A MULTIPACK Pigtail 5 Fr catheter was advanced over the wire and used for LV Angiography. 9:34:58 ACIST Hand Control (47457) opened to sterile field. 9:34:58 ACIST Manifold (91782) opened to sterile field. 9:34:59 ACIST Syringe (07690) opened to sterile field. 9:36:06 LV hemodynamics recorded. 9:36:08 LV gram done using RAMIREZ 9:36:30 EF : 55 % 9:36:34 Injector settings: Ml/sec: 10, Volume: 20, 9:36:37 Catheter removed. 9:36:54 Sheath removed intact; hemostasis achieved with Exoseal to the Right Femoral artery. 9:37:13 EXOSEAL 5Fr (EX500) opened to sterile field. 9:37:18 Tegaderm 4 x 4 (1626W) opened to sterile field. 9:37:33 Procedure ended.(Physican Out) 9:37:55 Fluoroscopy time 01.90 minutes. 9:38:00 Fluoroscopy dose: 304 mGy 9:38:00 Flurop Dose total: 304 9:38:41 Dose Area Product 108 mGy/cm. 9:38:48 Contrast amount:Isovue 370 44ml. 9:38:52 Maximum allowable dose exceeded? No. 9:38:53 Sharps counted by scrub and verified by R.N. 9:38:57 Insertion/operative site no bleeding no hematoma. 9:39:01 Post-op/insertion site Right Femoral artery dressed using a 4 x 4 and Tegaderm. 9:39:05 Post right femoral artery:stable, clean and dry 9:39:19 Sheath removed intact; hemostasis achieved with Manual Compression to the Right Femoral vein. 9:39:36 Post right femoral vein:stable, clean and dry 9:39:39 Post Procedure Pulses reassessed and unchanged 9:39:44 Post-procedure physical assessment completed. ASA score P 2 - A patient with mild systemic disease as per Gucci Arthur MD. 9:39:47 Post procedure rhythm: unchanged. 9:39:49 Estimated blood loss: 5 ml 9:39:50 Post procedure instruction explained to patient.Patient verbalizes understanding. 9:39:51 Patient needs reinforcement of post procedure teaching. 9:40:34 Procedure and supply charges have been captured, reviewed, submitted and are correct. 9:40:38 Procedure Complication : No complications 9:40:57 Operative report dictated upon procedure completion. 9:40:59 See physician's report for complete and final results. 9:41:01 Report given to Pre/Post Procedure Room. 9:41:04 Patient transfered to Pre/Post Procedure Room with Stretcher. 9:41:14 Vital chart was stopped 9:41:16 Procedure ended. 9:41:16 Full Disclosure recording stopped Device Usage Item Name Manufacture Quantity Catalog Hospital Part Current Minimal Lot# / Number Charge Number Stock Stock Serial# Code MULTIPACK JL Cardinal 1 [id number] 5 4.0 5Fr Health catheter DIAGNOSTIC Cardinal 1 [id number] 289805 15802 981792 30 Multipack 5Fr Health catheter set ([id number]) MULTIPACK 3DRC Cardinal 1 753044 5 5Fr catheter Health SHEATH 5FR Terumo 1 [id number] 443621 615507 675716 5 [place] (BIT517) SHEATH 7FR Terumo 1 [id number] 178746 010110 091397 5 [place] (ASH753) SWAN 7Fr Negron 1 131F7P 896267 20349 392716 3 Thermodilution Lifesciences cather (131F7P) EMERALD Guide Cardinal 1 502-455 198886 261844 182342 5 Wire (502-455) Health MULTIPACK Cardinal 1 141652 5 Pigtail 5 Fr Health catheter ACIST Hand Acist 1 62517 376345 872778 509111 5 Control Medical (52899) Systems Inc ACIST Manifold Acist 1 59143 355395 363444 197085 5 (27528) Medical Systems Inc ACIST Syringe Acist 1 37993 853068 287583 999567 20 (37819) Medical Systems Inc EXOSEAL 5Fr Cardinal 1 EX500 139653 803154 252773 10 (EX500) Health Tegaderm 4 x 4 3M 1 1626W 607752 916910 835234 5 (1626W) Signature Audit [place] Stage Time Signature Unsigned Intra-Procedure 12/13/2020 Gucci Jaimes 9:41:45 GENNY Bond MD; Romero Holman RN; Marisa Newton RT(R) Signatures Performing Physician : Signature : Gucci Arthur MD Date : Time : Monitor : Marisa Signature : Counts RT Date : Time : Nurse : Romero Lorigan Signature : RN Date : Time : [address] [place] [address]
[~2020-12-13 07:03] MED LIST changes: +ELIQUIS5 MG PO; +FUROSEMIDE40 MG PO; +LANOXIN125 MCG PO
[2020-12-13] MEDS ORDERED: TRELEGY ELLIPT1 EACH INH (07:31)
[2020-12-13] MEDS ORDERED: PROTONIX40 MG PO (07:31)
[2020-12-13] MEDS ORDERED: HYDROXYZINE HCL50 MG PO (07:31)
[2020-12-13] MEDS ORDERED: AMIODARONE HCL200 MG PO (07:33)
[2020-12-13 07:58] VITALS: BP 142/67; Ht 149.9 cm; Wt 83.4 kg
[2020-12-13 08:19] LABS: BASOPHILS 0.2 % (0-2); EOSINOPHILS 1.5 % (0-7); HEMATOCRIT 42.4 % (36.0-48.0); HEMOGLOBIN 13.7 g/dL (12-16); IMMATURE GRANULOCYTES 0.2 % (0-5); LYMPHOCYTE ABS# 1.14 10x3/uL (1.18-3.74); LYMPHOCYTES 24.7 % (15-50); MCH 29.2 pg (26.0-34.0); MCHC 32.3 g/dL (31.0-37.0); MCV 90.4 fL (80.0-100.0); MEAN PLATELET VOLUME 8.4 fL (7.4-10.4); MONOCYTES 12.6 % (2-11); NEUTROPHIL ABS# 2.81 10x3/uL (1.56-6.13); NEUTROPHILS 60.8 % (40-80); PLATELET COUNT 145 10x3/uL (130-400); RBC 4.69 10x6/uL (4.00-5.40); RDW 13.2 % (11.5-14.5); WBC 4.6 10x3/uL (4.8-10.8)
[2020-12-13 08:27] LABS: ANION GAP 13.2 mmol/L (8-16); CALCIUM 8.7 mg/dL (8.5-10.1); CARBON DIOXIDE 26.8 mmol/L (21.0-32.0); CHOL - HDL RATIO 3.2 ratio (2.3-4.1); LDL-HDL RATIO 1.9 ratio (1.5-3.5)
--- NOTE | 2020-12-13 09:50 | NUR ---
PT RECEIVED BACK TO ROOM 7 VIA STRETCHER FROM MANAGER CHILD FOR RECOVERY. PT AWAKE BUT DROWSY, DENIES PAIN OR DISCOMFORT AT THIS TIME. IV PATENT INFUSING VIA ORDERS. R GROIN W 5FR EXOCELE, TEGADERM DRESSING CDI NO S/S HEMATOMA OR BLEEDING NOTED. LEG PINK AND WARM, PEDAL PULSES PALPABLE. PT INSTRUCTED TO KEEP HEAD FLAT ON PILLOW AND LEG STRAIGHT, SHE VERBALIZED UNDERSTANDING. PT PLACED ON CARDIAC MOMITORS AND O2 VIA NC AT 2L. CALL LIGHT IN REACH
--- NOTE | 2020-12-13 10:15 | NUR ---
PT RESTING COMFORTABLY, DR GONZALES AT , DISCUSSED PROCEDURE RESULTS AND PLAN OF CARE. NO NEW ORDERS RECEIVED. R GROIN SOFT, DRESSING CDI NO S/S HEMATOMA OR BLEEDING. LEG PINK AND WARM, PEDAL PULSES PALPABLE. CALL LIGHT IN REACH
--- NOTE | 2020-12-13 10:50 | NUR ---
R GROIN SOFT, DRESSING CDI NO S/S HEMATOMA OR BLEEDING NOTED. HOB ELEVATED, SPRITE SERVED. VSS AT PRESENT, O2 REMOVED SAT 95 ON ROOM AIR. OFFERED PT SANDWICH, SHE DECLINES AT THIS TIME. CALL LIGHT REMAINS IN REACH
--- NOTE | 2020-12-13 11:35 | NUR ---
DISCHARGE INSTRUCTIONS REVIEWED W PT, SHE VERBALIZED UNDERSTANDING. PT INFORMED THAT DR BRASHER OFFICE WILL BE CALLING HER FOR AN APPT. IV REMOVED W CATH INTACT. MONITORS REMOVED. R GROIN REMAINS SOFT, NO S/S HEMATOMA OR BLEEDING NOTED. PT UP TO DRESS FOR DISCHARGE
--- NOTE | 2020-12-13 11:54 | NUR ---
PT TO BR VIA WC, VOIDING W/O DIFFICULITY. PT THEN DISCHARGED VIA WC TO WAITING IN PRIVATE VEHICLE. PT HAD ALL BELONGINGS AND DISCHARGE PAPERWORK
--- NOTE | 2020-12-15 09:41 | OP ---
PATIENT NAME: ELISSA STRANGE MEDICAL RECORD: [id number] :51 LOCATION:D.CAT ADMISSION DATE: SURGEON: NEETA GONZALES MD DATE OF OPERATION: 12/13/2020 PROCEDURE: Left and right heart catheterization, right femoral artery and vein approach respectively. CATHETERS: A 5-Chilean sheath on the arterial side, 7-Chilean sheath on the venous side. The procedure was well tolerated. The patient was returned to the manzo, sheath removed. ExoSeal device was placed in the arterial side. FINDINGS: Left ventriculography in the 30-degree RAMIREZ view, normal wall motion, normal systolic function. LVEDP is 20-22 mmHg. CORONARY ANATOMY: Left main: Left main is free of disease. LAD: Free of disease in the diagonal system. Circumflex: Free of disease in the marginal system. Right coronary artery: Rudimentary vessel, free of disease. DESCRIPTION OF PROCEDURE: Right heart catheterization: Right heart catheterization performed via the right femoral vein. A PA catheter was placed for wedge pressure. Cardiac catheterization was performed and sequential pressures performed in the pulmonary capillary wedge pressure, pulmonary artery pressure, RV pressure and finally RA pressure. Cardiac outputs, multiple outputs were performed with the highest and lowest being discarded and showed an average of 3.6. Next, capillary wedge pressure showed some respiratory variation but a mean of around 40 to 45. PA pressure was 55-60 over 40, RV pressure 50/12, and RA pressure was 20. Using cardiac output and [id number] from the wedge pressure to the LVEDP, this gives a mitral valve area of 0.81. IMPRESSION: Severe mitral stenosis, normal LV function. No obstructive coronary disease. Referred to Dr. Ritchie for possible valve replacement versus repair. TRANSINT:[id number] Voice Confirmation ID: [id number] DOCUMENT ID: [id number] NEETA GONZALES MD at 0941 CC: [id number] DICTATION DATE: 12/13/20956 HELP DESK ANALYST: 12/13/202024 [facility] 12/13/20 [facility] [address] [place] [address]
== END 2020-12-13 11:50 | disposition home or self-care (01) ==
LOC: D.CATH 07:03
PROVIDERS: ATTEND Internal Medicine Interventional Cardiology
DX: I25.110 Atherosclerotic heart disease of native coronary artery with unstable angina pectoris (principal); R06.02 Shortness of breath; I48.91 Unspecified atrial fibrillation; I10 Essential (primary) hypertension; I05.0 Rheumatic mitral stenosis

== ENCOUNTER 2021-01-04 11:38 | Day surgery (SDC) | payer OTHER ==
[~2021-01-04] VITALS: Ht 149.9 cm; Wt 82.7 kg
--- NOTE | ~2021-01-04 | HEMODYNAMI ---
PATIENT:ELISSA STRANGE MEDICAL RECORD: [id number] : 51 LOCATION:[place] ADMISSION DATE: 01/04/21 Generatedon:113:36 Patient name: ELISSA STRANGE Patient #: [id number] SSN : [id number] : 1955 Date of study: 01/04/2021 Page: Of Hemodynamic Procedure Report Patient Data Patient Demographics Procedure consent was obtained First Name: ELISSA Gender: Female Last Name: ALIE : 1955 [facility] Initial: SEVEN Age: 65 year(s) Patient #: [id number] Race: SSN: [id number] Additional ID: [id number] Contact details Address: [address] [place] [address] State: [place] City: [place] Zip code: [address] Past Medical History Allergies: No known allergies Admission Admission Data Admission Date: 01/04/2021 Admission Time: 11:38 Lab Results Lab Result Date: 01/04/2021 Lab Result Time: 0:00 Biochemistry Name Units Result Min Max BUN mg/dl 15 --(--*-)-- 7 18 Creatinine mg/dl 0.9 --(-*--)-- 0.6 1.3 CBC Name Units Result Min Max Hemoglobin g/dl 14.9 --(-*--)-- 13.5 17.5 Procedure Procedure Types Cath Procedure Diagnostic Procedure DELONTE Procedure Description Procedure Date Procedure Date: 01/04/2021 Procedure Start Time: 13:22 Procedure End Time: 13:29 Procedure Staff Name Function Gucci Arthur MD Performing Physician Jyoti Hoffmann RT Monitor Nils Ramirez RN Nurse Kelly Gomez Snap Shearer Masood Jc CRNA Additional personnel Procedure Data Cath Procedure Fluoroscopy Diagnostic fluoroscopy Total fluoroscopy Time: 0 time: 0 min min Estimated blood loss: 0 ml Procedure Complications No complications Procedure Medications Medication Administration Route Dosage Oxygen etCO2 Nasal cannula 2 l/min Refer to Anesthesia Notes for Sedation Medications Hurricaine [place] [address] Sprays Hemodynamics Rest Heart Rate: 79 (bpm) Snapshots Pre Cath Intra NCS Post Cath Vital Signs Time Heart Resp SPO2 etCO2 NIBP (mmHg) Rhythm Pain Sedation Rate (ipm) (%) (mmHg) Status Level (bpm) 13:22:31 90 24 96 21.3 117/104(114) A-Fib 0 (11) 10(A) , No pain 13:26:39 100 29 96 22.1 125/112(121) A-Fib 0 (11) 9(A) , No pain 13:31:26 83 20 99 15.2 136/66(103) A-Fib 0 (11) 9(A) , No pain 13:36:04 88 20 100 22.8 138/67(102) A-Fib 0 (11) 10(A) , No pain Medications Time Medication Route Dose Verified Delivered Reason Notes Effectiv eness by by 13:21:34 Oxygen etCO2 2 Gucci Wray used for Nasal l/min St Varun Ramirez RN procedure cannula MD 13:21:37 Refer to Gucci Wray Anesthesia St Varun Ramirez RN Notes for MD Sedation Medications 13:21:47 Hurricaine [address] Gucci Wray Per [place] Sprays St Varun Ramirez RN physician Procedure Log Time Note 13:15:25 Procedure Status Elective Heart Cath (OP). 13:15:28 Nils Ramirez RN sent for patient. Start room use. 13:15:29 Time tracking: Regular hours (M-F 7:00 - 5:00) 13:15:30 Masood Jc CRNA present and monitoring patient for TIVA. 13:15:33 Plan of Care:Hemodynamics will remain stable., Cardiac rhythm will remain stable., Comfort level will be maintained., Respiratory function will remain adequate., Patient/ family verbilizes understanding of procedure., Procedure tolerated without complication., Recovers from procedure without complications.. 13:15:47 Patient received from Pre/Post Procedure Room to CCL 2 Alert and oriented. Tansferred to table in Supine position. 13:15:50 Signed procedure consent form obtained from patient. 13:15:51 Warm blankets applied, and love hugger turned on for patient comfort. 13:15:52 Correct patient and procedure confirmed by team. 13:15:53 ECG and BP/O2 sat monitors applied to patient. 13:15:59 H&P Date Dictated: 01/04/2021 Emergent; H&P N/A, Within 30 days and on chart.. 13:16:03 Pre-procedure instructions explained to patient. 13:16:19 Family in waiting room. 13:16:21 Patient NPO since Midnight. 13:16:42 Patient allergic to No known allergies 13:16:47 Is the patient allergic to Iodine/contrast media? N/A. 13:16:49 Was the patient premedicated? N/A 13:16:51 Is patient on blood thinner?Yes 13:16:56 ACC The patient was administered the following blood thiners within the last 24 hours: Eliquis 13:16:59 Patient diabetic? No. 13:17:03 Snore? No 13:17:04 Sleep apnea? No 13:17:19 Dentures? Yes upper partials 13:17:30 IV patent on arrival in right forearm with 0.9% NaCl at [facility]. 13:19:57 Alarms reviewed by Brian Kimbrough 13:20:01 Physician arrived 13:20:02 --------ALL STOP TIME OUT------ 13:20:02 Final Timeout: patient, procedure, and site verified with staff and physician. All members of the team are in agreement. 13:20:13 Fire Safety Assessment: A--An alcohol-based skin anteseptic being used preoperatively., C--Open oxygen or nitrous oxide is being used., D--An ESU, laser, or fiber-optic light is being used. 13:20:22 Physical assessment completed. ASA score P 2 - A patient with mild systemic disease as per Gucci Arthur MD. 13:20:28 Sedation plan: TIVA Medication:Propofol 13:21:02 Vital chart was started 13:21:03 Baseline sample Acquired. 13:21:08 Rhythm: sinus rhythm 13:21:10 Full Disclosure recording started 13:21:34 Oxygen 2 l/min etCO2 Nasal cannula was administered by Nils Ramirez RN; used for procedure; Verbal order read back and verified. 13:21:37 Refer to Anesthesia Notes for Sedation Medications was administered by Nils Ramirez RN; ; Verbal order read back and verified. 13:21:47 Hurricaine [place]ello 1 Sprays P.O. was administered by Nils Ramirez RN; Per physician; Verbal order read back and verified. 13::52 Lab Result : BUN 15 mg/dl 13::52 Lab Result : Creatinine 0.9 mg/dl 13::52 Lab Result : Hemoglobin 14.9 g/dl 13:21:57 Lab results completed and on chart. 13:22:05 Procedure started. 13:23:16 Kelly Gomez Punch Machine Hand present for DELONTE. 13:23:17 DELONTE started. 13:27:28 DELONTE completed. 13:27:39 Procedure ended.(Physican Out) 13:27:51 Fluoroscopy time 00.00 minutes. 13:27:59 Insertion/operative site no bleeding no hematoma. 13:28:02 Post Procedure Pulses reassessed and unchanged 13:28:08 Post-procedure physical assessment completed. ASA score P 2 - A patient with mild systemic disease as per Gucci Arthur MD. 13:28:13 Post procedure rhythm: unchanged. 13:28:16 Estimated blood loss: 0 ml 13:28:18 Post procedure instruction explained to patient.Patient verbalizes understanding. 13:28:23 Procedure and supply charges have been captured, reviewed, submitted and are correct. 13:28:37 Procedure Complication : No complications 13:28:40 Vital chart was stopped 13:28:47 [facility] Findings: mild to moderate CAD (<70%) 13:29:10 DELONTE Findings: other (see operative note) 13:29:15 DELONTE Findings: no vegetation noted 13:29:31 See physician's report for complete and final results. 13:29:35 Report given to Pre/Post Procedure Room. 13:29:38 Patient transfered to Pre/Post Procedure Room with Stretcher. 13:29:39 Procedure ended. 13:29:39 Full Disclosure recording stopped 13:29:44 End room use (Document Last) 13:30:58 End room use (Document Last) 13:31:23 End room use (Document Last) Signature Audit [place] Stage Time Signature Unsigned Intra-Procedure 01/04/2021 Jyoti Hoffmann 1:30:58 PM RT(R) Intra-Procedure 01/04/2021 Nils Ramirez RN 1:31:23 PM Intra-Procedure 01/04/2021 Gucci Jaimes 1:36:54 PM Varun ALVES Signatures Performing Physician : Signature : Gucci Arthur MD Date : Time : Monitor : Jyoti Shun Signature : RT Date : Time : Nurse : Buffie Ramirez RN Signature : Date : Time : [address] [place] [address]
[~2021-01-04 11:38] MED LIST changes: +AMIODARONE HCL200 MG PO; +HYDROXYZINE HCL50 MG PO; +PROTONIX40 MG PO; +TRELEGY ELLIPT1 EACH INH
[2021-01-04 12:30] VITALS: BP 138/70; Ht 149.9 cm; Wt 82.7 kg
[2021-01-04 13:00] LABS: CALCIUM 9.1 mg/dL (8.5-10.1); CARBON DIOXIDE 27.3 mmol/L (21.0-32.0); CREATININE - SERUM 0.9 mg/dL (0.6-1.3)
[2021-01-04 13:02] LABS: BASOPHILS 0.2 % (0-2); EOSINOPHILS 0.4 % (0-7); HEMATOCRIT 46.9 % (36.0-48.0); HEMOGLOBIN 14.9 g/dL (12-16); IMMATURE GRANULOCYTES 0.4 % (0-5); LYMPHOCYTE ABS# 1.04 10x3/uL (1.18-3.74); LYMPHOCYTES 19.8 % (15-50); MCH 29.5 pg (26.0-34.0); MCHC 31.8 g/dL (31.0-37.0); MCV 92.9 fL (80.0-100.0); MEAN PLATELET VOLUME 8.9 fL (7.4-10.4); MONOCYTES 11.2 % (2-11); NEUTROPHIL ABS# 3.58 10x3/uL (1.56-6.13); RBC 5.05 10x6/uL (4.00-5.40); RDW 13.4 % (11.5-14.5); WBC 5.3 10x3/uL (4.8-10.8)
[2021-01-04 13:05] LABS: PLATELET COUNT 179 10x3/uL (130-400)
[2021-01-04 13:33] LABS: ANION GAP 13.6 mmol/L (8-16); POTASSIUM - SERUM 4.9 mmol/L (3.5-5.1)
--- NOTE | 2021-01-04 13:43 | NUR ---
PT RECEIVED VIA STRETCHER FROM SHOULDER BONER BACK TO ROOM 4 FOR RECOVERY. PT AWAKE AND ALERT, DENIES PAIN OR DISCOMFORT. IV PATENT INFUSING VIA ORDERS. PT PLACED ON CARDIAC MONITORS, VSS SEE VS SHEET. PT DENIES TROUBLE SWALLOWING. CALL LIGHT IN REACH.
[2021-01-04] MEDS ORDERED: AMIODARONE HCL200 MG PO (13:59)
--- NOTE | 2021-01-04 14:00 | NUR ---
PT RESTING COMFORTABLY, VSS AT PRESENT. NO C/O PAIN OR DIFFICULITY SWALLOWING. AT BS, CALL LIGHT IN REACH
--- NOTE | 2021-01-04 14:20 | NUR ---
DR GONZALES AT , NO NEW ORDERS RECEIVED. [id number] DISCHARGE INSTRUCTIONS REVIEWED W PT AND , BOTH VERBALIZED UNDERSTANDING. IV REMOVED W CATH INTACT. MONITORS REMOVED AND PT UP TO DRESS
--- NOTE | 2021-01-04 14:33 | NUR ---
PT DISCHARGED VIA WC TO WAITING IN PRIVATE VEHICLE. PT HAD DISCHARGE FOLDER AND ALL BELONGINGS IN HAND
--- NOTE | 2021-01-05 09:58 | TEE ---
PATIENT:ELISSA STRANGE [facility] MEDICAL RECORD: [id number] LOCATION:[facility] AGE OF PATIENT: 65 ADMISSION DATE: 01/04/21 SEX: F REFERRING PHYSICIAN: INTERPRETING PHYSICIAN: NEETA GONZALES MD TRANSESOPHAGEAL ECHOCARDIOGRAM Date: 01/04/21 DELONTE CHARGE Y INDICATIONS: MR, DYSPNEA PREMEDICATIONS: PATIENT'S RESPONSE PROCEDURE DOPPLER MEASUREMENTS: LVIT LA PA RA LVOT RVOT Asc. Ao AV Gradient Peak AV Mean AV Area MV Gradient Peak MV Mean MV Area INTERPRETATION: Doppler: 2-D: COLOR FLOW DOPPLER NORMAL SALINE STUDY: MISCELLANOUS: DIAGNOSIS: PLAN: Chief Of Staff:3 Dr. Wu Manager Protein: Edmond TURPIN COMMENTS: DATE OF SERVICE: 01/04/2021 TRANSESOPHAGEAL NOTE After general sedation via TIVA anesthesia, transesophageal Omniplane probe was placed in the distal esophagus and proximal stomach without difficulty. FINDINGS: LVH present. LV internal dimensions are normal. Wall motion is normal. EF 75%. Aortic valve is sclerotic; however, was good valve excursion. TRANSESOPHAGEAL ECHOCARDIOGRAM REPORT [id number] MICHELLE STRANGE No significant AI. Left atrium appears dilated. Mitral valve is thickened with dense calcification particularly at the posterior leaflet. Minimal valve excursion. Calcification extends into the chordae apparatus as well. Right-sided chambers were mildly dilated. Moderate TR as well. At the end of procedure, transesophageal Omniplane probe was turned posteriorly and this showed minimal atherosclerotic debris in the ascending aorta. IMPRESSION: Critical mitral stenosis with dense calcification. May not be amenable to repair at this point given calcification. TRANSINT:[id number] Voice Confirmation ID: [id number] DOCUMENT ID: [id number] at 0958 CC: [id number] DICTATION DATE: 01/04/21 1333 JAVA USER INTERFACE DEVELOPER: 01/05/21 0026 [facility] 01/04/21 [facility] [address] [place] [address]
== END 2021-01-04 14:32 | disposition home or self-care (01) ==
LOC: D.CATH 11:38
PROVIDERS: ATTEND Internal Medicine Interventional Cardiology
DX: I48.91 Unspecified atrial fibrillation (principal); I25.10 Atherosclerotic heart disease of native coronary artery without angina pectoris; I10 Essential (primary) hypertension; I05.0 Rheumatic mitral stenosis

== ENCOUNTER 2021-01-22 10:50 | Inpatient (IN) | payer OTHER ==
[~2021-01-22] VITALS: Ht 162.6 cm; Wt 108.2 kg
--- NOTE | 2021-01-25 11:07 | NUR ---
RESPIRATORY THERAPY TECHNICIANS ATTEMPTED UNSUCCESSFULLY TO GET ABGS AT [facility] APPOINTMENT ON 01/25/21. NOTIFIED JULIANE. POLY ENAMORADO RN
[2021-01-25 11:10] LABS: BILIRUBIN NEGATIVE (NEGATIVE); KETONE NEGATIVE (NEGATIVE); NITRITE NEGATIVE (NEGATIVE); UROBILINOGEN NORMAL mg/dL (< 2)
[2021-01-25 11:11] LABS: BASOPHILS 0.2 % (0-2); EOSINOPHILS 0.9 % (0-7); HEMATOCRIT 43.4 % (36.0-48.0); HEMOGLOBIN 13.9 g/dL (12-16); IMMATURE GRANULOCYTES 0.5 % (0-5); LYMPHOCYTE ABS# 1.06 10x3/uL (1.18-3.74); LYMPHOCYTES 16.6 % (15-50); MCH 29.5 pg (26.0-34.0); MCV 92.1 fL (80.0-100.0); MONOCYTES 8.8 % (2-11); NEUTROPHIL ABS# 4.68 10x3/uL (1.56-6.13); PLATELET COUNT 177 10x3/uL (130-400); RBC 4.71 10x6/uL (4.00-5.40); RDW 13.1 % (11.5-14.5); WBC 6.4 10x3/uL (4.8-10.8)
[2021-01-25 11:12] LABS: BACTERIA FEW HPF (NONE SEEN); SQUAMOUS EPITHELIAL 0-5 HPF (0-4); WHITE CELLS - URINE 0-5 HPF (0-4)
[2021-01-25 11:22] LABS: APTT 33.7 SECONDS (22.8-39.4); INR 1.13 (0.85-1.17); PROTIME 13.4 SECONDS (11.6-15.0)
[2021-01-25 11:38] LABS: ALBUMIN 3.8 g/dL (3.4-5.0); ANION GAP 10.5 mmol/L (8-16); BILIRUBIN - TOTAL 0.22 mg/dL (0.2-1.3); CALCIUM 8.9 mg/dL (8.5-10.1); CARBON DIOXIDE 30.9 mmol/L (21.0-32.0); PHOSPHOROUS 3.4 mg/dL (2.5-4.9); POTASSIUM - SERUM 4.4 mmol/L (3.5-5.1); PROTEIN - SERUM 7.2 g/dL (6.4-8.2); T4 THYROXIN - FREE 1.05 ng/dL (0.76-1.46); THYROID STIMULATING HORMONE 0.56 uIU/mL (0.36-3.74)
[2021-01-29] VITALS (35 sets, daily range): BP systolic 93–149; BP diastolic 49–77; BMI 31.8
[2021-01-29 07:11] LABS: BILIRUBIN NEGATIVE (NEGATIVE); KETONE NEGATIVE (NEGATIVE); NITRITE NEGATIVE (NEGATIVE); SQUAMOUS EPITHELIAL RARE HPF (0-4); UROBILINOGEN NORMAL mg/dL (< 2); WHITE CELLS - URINE NONE SEEN HPF (0-4)
[2021-01-29 07:12] LABS: BACTERIA FEW HPF (NONE SEEN)
--- NOTE | 2021-01-29 09:34 | NUR ---
CVL AND ARTERIAL LINE PLACED BY ANESTHESIA, SCD'S AND STOCKINGS PLACED POST OPERATIVELY, JEB.
[2021-01-29 13:21] LABS: INR 2.24 (0.85-1.17)
[2021-01-29 15:27] LABS: BASOPHILS 0 % (0-2); EOSINOPHILS 0.1 % (0-7); HEMATOCRIT 24.6 % (36.0-48.0); HEMOGLOBIN 7.8 g/dL (12-16); IMMATURE GRANULOCYTES 0.4 % (0-5); LYMPHOCYTE ABS# 1.04 10x3/uL (1.18-3.74); LYMPHOCYTES 10.1 % (15-50); MCH 28.8 pg (26.0-34.0); MCHC 31.7 g/dL (31.0-37.0); MCV 90.8 fL (80.0-100.0); MEAN PLATELET VOLUME 8.8 fL (7.4-10.4); MONOCYTES 10.1 % (2-11); NEUTROPHIL ABS# 8.16 10x3/uL (1.56-6.13); NEUTROPHILS 79.3 % (40-80); PLATELET COUNT 115 10x3/uL (130-400); RBC 2.71 10x6/uL (4.00-5.40); RDW 13.5 % (11.5-14.5); WBC 10.3 10x3/uL (4.8-10.8)
[2021-01-29 15:57] LABS: APTT 39.6 SECONDS (22.8-39.4); INR 1.58 (0.85-1.17); PROTIME 17.5 SECONDS (11.6-15.0)
--- NOTE | 2021-01-29 16:32 | NUR ---
1458 PT RECIEVED FROM OR SEDATED FROM SURGERY ETT SECURED AND PLACED ON VENT BY RT, R IJ SWAN RUBINA LOCKED AT APPROX 48CM L RADIAL AND L FEMORAL A LINE ZEROED. GOOD WAVEFORM, CTX2 Y'D TOGETHER WITH LARGE AMOUNTS OF BLOODY DRAINAGE, DR BERMUDEZ AWARE, TPM DDD80 AMA AND VMA 20, THIRD TPM WIRE COILED, DRESSING CHANGED ON ARRIVAL TO ROOM
--- NOTE | 2021-01-29 18:14 | NUR ---
DR BERMUDEZ AWARE OF URINE OUTPUT
[2021-01-29 18:22] LABS: INR 1.38 (0.85-1.17); PROTIME 15.8 SECONDS (11.6-15.0)
[2021-01-29 18:23] LABS: APTT 40.9 SECONDS (22.8-39.4)
[2021-01-30] VITALS (94 sets, daily range): BP systolic 92–124; BP diastolic 45–64; Ht 162.6 cm; Wt 108.2 kg
[2021-01-30 03:22] LABS: HEMATOCRIT 25.3 % (36.0-48.0); HEMOGLOBIN 8.2 g/dL (12-16); MCH 28.6 pg (26.0-34.0); MCHC 32.4 g/dL (31.0-37.0); MEAN PLATELET VOLUME 9.8 fL (7.4-10.4); RBC 2.87 10x6/uL (4.00-5.40); RDW 14.8 % (11.5-14.5); WBC 8.3 10x3/uL (4.8-10.8)
[2021-01-30 03:23] LABS: MCV 88.2 fL (80.0-100.0)
[2021-01-30 03:41] LABS: ALBUMIN 3.3 g/dL (3.4-5.0); ANION GAP 16.9 mmol/L (8-16); BILIRUBIN - TOTAL 0.73 mg/dL (0.2-1.3); CALCIUM 7.9 mg/dL (8.5-10.1); CARBON DIOXIDE 25.8 mmol/L (21.0-32.0); CREATININE - SERUM 1.1 mg/dL (0.6-1.3); MAGNESIUM - SERUM 2.2 mg/dL (1.8-2.4); PHOSPHOROUS 4.8 mg/dL (2.5-4.9); POTASSIUM - SERUM 3.7 mmol/L (3.5-5.1); PROTEIN - SERUM 5.7 g/dL (6.4-8.2)
--- NOTE | 2021-01-30 07:00 | NUR ---
[facility]. PATEINT SEDATED ON VENT, VENT SETTINGS TV 500, AC 14, FIO2 40%, PEEP 5, SPO2 98%. RIGHT IJ CVL/SWAN RUBINA CATHETER AT 48 CM WITJH 45/23 (31), SV02 - 50% AND CCI 1.6. ART LINE LEFT RADIAL WRIST WITH GOOD WAVE FORM, ART, CVP AND SWAN RUBINA LEVELED AND ZEROED. INFUSING PLASMOLYTE AT 100 ML/HR, DOPAMINE AT 5 MCG/KG/MIN (15.6 ML/HR), PROPOFOL AT 30 MCG/KG/MIN (14.9 ML/HR) AND ZINACEF AT 12.8 ML/HR. KEYS CATH IN PLACE WITH 125 ML OF CLEAR YELLOW UOP NOTED. CHEST TUBE TO 20 CM WALL SUCTION WITH NO AIRLEAK DETECTED, WITH 20 ML OF BLOODY DRAINAGE NOTED. MIDLINE INCISION CLOSED AND WELL APPROXIMATED, CHEST TUBE DRESSINGS C/D/I. RESTRAINTS, SCD'S AND DOMINIK HOSE IN PLACE. HEAD TO TOE ASSESSMENT COMPLETED.
--- NOTE | 2021-01-30 08:06 | NUR ---
FSBS - 214 MG/DL, INSULIN GTT STARTED PER PROTOCOL.
--- NOTE | 2021-01-30 08:35 | NUR ---
DR. BERMUDEZ AT ROOM UPDATED AND EXAMINES PATIENT. TO WORK WITH DR. WATKINS TO POSSIBLY EXTUBATE PATIENT TODAY.
--- NOTE | 2021-01-30 08:50 | NUR ---
PATIENTS AT ROOM UPDATED AND QUESTIONS ANSWERED.
--- NOTE | 2021-01-30 09:08 | NUR ---
CHEST TUBE DRESSING CHANGED.
--- NOTE | 2021-01-30 09:46 | NUR ---
DR. WATKINS AT ROOM UPDATED AND EXAMINES PATIENT. TO PLACE ON CPAP TRIAL FOR 2 HRS TO DETERMINE IF ABLE TO EXTUBATE.
--- NOTE | 2021-01-30 09:58 | NUR ---
PLACED ON CPAP TRAIL AT 0952, PEEP 5, PS 10. RR 27/MIN, HR 80 PACED. SPO2 96%.
--- NOTE | 2021-01-30 10:12 | NUR ---
PATIENT RESTLESS, SVO2 DOWN TO 42, RR - 33, PA 69/34 (47). C/O PAIN, GIVEN PRN MORPHINE PER ORDER, RT NOTIFIED.
--- NOTE | 2021-01-30 10:15 | NUR ---
PLACED BACK ON A RATE, WILL ATTEMPT CPAP AGAIN IN 2 HRS.
--- NOTE | 2021-01-30 11:04 | NUR ---
REASSESSMENT COMPLETED. TURNED AND REPOSITIONED IN BED. DR. WATKINS AT ROOM UPDATED ON CPAP TRAIL, ADVISED TO HOLD OFF UNTIL SVO2 IS ABOVE 60 AND CCI IS ABOVE 2 PRIOR TO REATTEMPTING.
--- NOTE | 2021-01-30 12:41 | NUR ---
PATIENTS DAUGHTER AT ROOM UPDATED AND QUESTIONS ANSWERED.
--- NOTE | 2021-01-30 13:04 | NUR ---
PATIENT TURNED AND REPOSITIONED IN BED.
--- NOTE | 2021-01-30 15:04 | NUR ---
REASSEMENT COMPLETED. PATIENT TURNED AND REPOSITIONED IN BED. ART, CVP AND PA LEVELED AND ZEROED.
--- NOTE | 2021-01-30 15:20 | NUR ---
DR. BERMUDEZ AT ROOM UPDATES AND ANSWERS PATIENTS DAUGHTERS QUESTIONS.
--- NOTE | 2021-01-30 15:57 | OP ---
PATIENT NAME: ELISSA STRANGE MEDICAL RECORD: [id number] :51 LOCATION[id number] ADMISSION DATE:01/29/21 SURGEON: GARRET BERMUDEZ MD DATE OF OPERATION: 01/29/2021 SURGEON: Garret Bermudez MD PROCEDURES PERFORMED: 1. Mitral valve replacement ([address] Kvng mechanical valve). 2. Surgical Maze procedure with right and left heart radiofrequency ablation and cryo. PREOPERATIVE DIAGNOSIS: Severe mitral stenosis and intermittent atrial fibrillation. POSTOPERATIVE DIAGNOSIS: Severe mitral stenosis and intermittent atrial fibrillation. ANESTHESIA: General endotracheal anesthesia. ESTIMATED BLOOD LOSS: Total cardiopulmonary bypass with Cell Saver re-transfusion, 2 FFP, 1 packed red blood cell, 1 platelets. CONDITION: Critical. DISPOSITION: CV ICU. COMPLICATIONS: Coagulopathy. SPECIMENS: Debrided annular tissue and valvular tissue from the mitral valve. OPERATIVE PROCEDURE: The patient is in sinus rhythm, but developed atrial fibrillation after opening the pericardium. Transesophageal echocardiography confirmed severe mitral stenosis with severe posterior annular calcification as seen in the operating room as well. Posterior annulus was debrided as much as possible, but the calcium extended down below the annulus along the free wall. The valve seated well with good motion of the leaflets and in 2 sites Pledgeted sutures were needed to bolster the posterior mitral valve annulus. Separation from cardiopulmonary bypass with minimal dopamine. Atrial and ventricular pacing. OPERATIVE INDICATIONS: Severe mitral stenosis, symptomatic. DESCRIPTION OF PROCEDURE: The patient was brought to the operating suite. General anesthesia was obtained, the patient was prepped and draped. Median sternotomy incision was made. Subcutaneous tissue divided with electrocautery. Sternum was divided with a saw. The pericardium was opened. Heparin was given. Aorta was cannulated. Bicaval cannulation was performed. The superior vena cava was freed as well as the inferior cava. After activated clotting time was appropriately elevated, the patient was placed on cardiopulmonary bypass. Bilateral pulmonary vein radiofrequency ablation was performed, then radiofrequency ablation through a small stab wound in the right atrium to the OPERATIVE REPORT [id number] ELISSA STRANGE superior and inferior cava as well as the right atrial appendage. Retrograde cardioplegic cannula was inserted. The patient was cooled. Antegrade cardioplegia cannula was inserted. Crossclamp was placed. The patient was crossclamped and cardioplegia was given retrograde and this was repeated at 20-minute intervals. Left atrium was opened. The Maze procedure was completed with 2 radiofrequency ablation lines and cryo lesion to the annulus. Then, the cryo lesion externally over the coronary sinus. The valve was identified with findings as expected. The anterior leaflet was removed. Posterior leaflet had severe calcification. It was debrided as much as possible. Several pledgeted sutures were used and then the valve was sized. Thorough irrigation was undertaken to remove loose debris. The valve was seated well. The patient was rewarmed. Atriotomy was closed. The patient was de-aired in steep Trendelenburg position. The cross clamp was removed. Retrograde cardioplegia cannula was removed. Eventually, a left femoral line was placed as the right radial line became unreliable. The patient was weaned from cardiopulmonary bypass and was stable. The patient was decannulated. Cannulation sites were oversewn. Protamine was given. Thorough irrigation was undertaken. Hemostasis was again assured. Pericardial fat was closed over the aorta. Drains were placed in the mediastinum. The patient had atrial and ventricular pacing wire placed and was placed off cardiopulmonary bypass. Sternum was closed with wires. Additional transfascial sutures were placed. Subcutaneous tissue was closed after the fascia and then skin. The patient to ICU critical. TRANSINT:[id number] Voice Confirmation ID: [id number] DOCUMENT ID: [id number] GARRET BERMUDEZ MD at 1557 CC: CHETAN WASHINGTON and NEETA GONZALES MD [id number] DICTATION DATE: 01/29/211756 ATMOSPHERIC PHYSICS PROFESSOR: 01/30/21 0003 ADM IN [facility] [address] [place] [id number]
--- NOTE | 2021-01-30 16:03 | NUR ---
PROPOFOL BOTTLE AND TUBING CHANGED.
--- NOTE | 2021-01-30 16:29 | NUR ---
ORAL CARE PROVIDED TO PATIENT.
--- NOTE | 2021-01-30 17:02 | NUR ---
PATIENT TURNED AND REPOSITONED IN BED. BACK AT BEDSIDE UPDATED AND QEUSTIONS ANSWERED.
--- NOTE | 2021-01-30 17:56 | NUR ---
ORAL CARE PROVIDED.
[2021-01-31] VITALS (86 sets, daily range): BP systolic 48–113; BP diastolic 7–76
[2021-01-31 05:27] LABS: HEMATOCRIT 23.7 % (36.0-48.0); MCH 28.5 pg (26.0-34.0); MCHC 31.6 g/dL (31.0-37.0); MCV 90.1 fL (80.0-100.0); RBC 2.63 10x6/uL (4.00-5.40)
[2021-01-31 05:40] LABS: HEMOGLOBIN 7.5 g/dL (12-16); WBC 12.4 10x3/uL (4.8-10.8)
[2021-01-31 05:43] LABS: ALBUMIN 2.7 g/dL (3.4-5.0); BILIRUBIN - TOTAL 0.59 mg/dL (0.2-1.3); CALCIUM 7.8 mg/dL (8.5-10.1); CARBON DIOXIDE 30.4 mmol/L (21.0-32.0); CREATININE - SERUM 0.9 mg/dL (0.6-1.3); MAGNESIUM - SERUM 2.7 mg/dL (1.8-2.4); PHOSPHOROUS 3.2 mg/dL (2.5-4.9); POTASSIUM - SERUM 3.4 mmol/L (3.5-5.1); PROTEIN - SERUM 5.5 g/dL (6.4-8.2)
--- NOTE | 2021-01-31 08:06 | EC ---
PATIENT:ELISSA STRANGE DATE OF SERVICE: 01/29/21 SEX: F MEDICAL RECORD: [id number] DATE OF : [birth year] LOCATION:[place] [address] AGE OF PATIENT: 66 ADMISSION DATE: 01/29/21 REFERRING PHYSICIAN: INTERPRETING PHYSICIAN: NEETA GONZALES MD ECHOCARDIOGRAM REPORT ECHO CHARGES Date: 01/29/21 CLINICAL DIAGNOSIS: ECHOCARDIOGRAPHIC MEASUREMENTS (adult normal given) AC root (d.<3.7cm) cm LV Septum d (<1.2 cm> cm Valve Excursion cm LV Septum (systole) cm Left Atria (s.<4.0cm> cm LVPW d(<1.2cm) cm RV (d.<2.3cm) cm LVPW (sytole) cm LV diastole(<5.6CM) cm MV E-F(>70mm/sec) cm LV systole cm LVOT Diameter cm MV exc.(>10mm) cm Est.ejection fraction (50-75%) % DOPPLER: LVIT cm/sec A cm/sec E cm/sec LA cm/sec RVSP mmHg LVOT cm/sec AOP1/2T m/s Asc. Ao cm/sec RVOT cm/sec RA cm/sec PA cm/sec AV Gradient Peak mmHg AV Mean mmHg AV Area cm MV Gradient Peak 1.5 mmHg MV Mean 0.7 mmHg MV Area cm COMMENTS: Document Analyst: Edmond TURPIN Concrete Plant Laborer: Joshua Wu TAPE# Pericardial Effusion DATE OF SERVICE: 01/29/2021 INTRAOPERATIVE TRANSESOPHAGEAL ECHO Preoperative shows normal LV wall motion, normal wall thickening, estimated EF 55%. Aortic valve is tricuspid. Good valve excursion. Left atrium appears mildly dilated. Mitral valve is thickened with obvious calcifications extending into the posterior leaflet and significant mitral stenosis. RV internal dimensions appear normal. Right atrium is dilated. ECHOCARDIOGRAM REPORT [id number] ELISSA STRANGE Postoperative shows normal LV wall motion and wall thickening, estimated EF 55%. Aortic valve is tricuspid with valve exertion. Prosthetic mitral valve was noted with good valve excursion and probably mild MR. Right-sided chambers with RV internal dimensions normal. Right atrium is dilated. Mild TR. TRANSINT:[id number] Voice Confirmation ID: [id number] DOCUMENT ID: [id number] NEETA GONZALES MD at 0806 CC: [id number] DICTATION DATE: 01/29/21 1635 LAMP SHADE SEWER: 01/29/21 2345 ADM IN [place] [id number] [place] [id number]
--- NOTE | 2021-01-31 12:28 | NUR ---
Nutrition Follow-up: POD 2 MVR, Maze procedure. Intubated/sedated. Diprivan @ 2.5 mL/hr this AM; provides 66 kcal/day. Discussed in IDT rounding. CPAP trials. Per Dr. Winkler, will start TF tomorrow if unable to extubate. Diet: NPO Wt: 205# (01/31) Labs noted: Na 148, K+ 3.4, Glu 151, Ca 7.8, Mg 2.7, Alb 2.7 Meds noted: Diprivan, Humulin, KCl -If unable to extubate, rec Pulmocare @ goal rate of 40 mL/hr; provides 1440 kcal (87% est needs) & 60 g protein (80-92% est needs) daily. -RD will follow up within 2 days.
[2021-01-31 12:32] LABS: BASOPHILS 0.3 % (0-2); EOSINOPHILS 0.3 % (0-7); IMMATURE GRANULOCYTES 5.1 % (0-5); LYMPHOCYTES 33.5 % (15-50); MCH 29.2 pg (26.0-34.0); MCHC 31.3 g/dL (31.0-37.0); MEAN PLATELET VOLUME 9.6 fL (7.4-10.4); MONOCYTES 4.5 % (2-11); NEUTROPHIL ABS# 4.87 10x3/uL (1.56-6.13); NEUTROPHILS 56.3 % (40-80); RDW 14.5 % (11.5-14.5); WBC 8.7 10x3/uL (4.8-10.8)
[2021-01-31 12:33] LABS: MCV 93.4 fL (80.0-100.0); PLATELET COUNT 132 10x3/uL (130-400); RBC 1.37 10x6/uL (4.00-5.40)
[2021-01-31 12:34] LABS: HEMATOCRIT 12.8 % (36.0-48.0)
[2021-01-31 12:44] LABS: APTT 82.8 SECONDS (22.8-39.4)
[2021-01-31 12:46] LABS: INR 2.26 (0.85-1.17); PROTIME 23.2 SECONDS (11.6-15.0)
--- NOTE | 2021-01-31 13:12 | NUR ---
1119 EMERGENCY CASE NO COUNTS DONE OR TIME OUT, DR BERMUDEZ WITH PATIENT [facility]
--- NOTE | 2021-01-31 13:21 | NUR ---
1321 PATIENT HAS ONE LAP AND RETRACTOR IN PLACE, JEB. NO X-RAY OR COUNT DUE TO THIS LAP AND RETRACTOR BEING ON AND IN PATIENT, JEB.
[2021-01-31 17:41] LABS: INR 1.99 (0.85-1.17); PROTIME 20.9 SECONDS (11.6-15.0)
--- NOTE | 2021-01-31 18:18 | NUR ---
Around 1050 the Pt's heart rate decreased along with her blood pressure. Dr. Ritchie was notified and epi was given per his order. Within minutes after the epi was given Dr. Ritchie entered the room and decided that the Pt needed to go back to the OR. He called the OR team. The Pt started dumping blood out of her chest tube. He called a code while the OR was getting ready. See code sheet and doctors notes. The Pt was taken to the OR around 1140. The Pt returned to CV around 1415. The Pt now has a ballon pump and her chest is open and covered. Dr. Ritchie up todate on pt's status, will continue to monitor.
[2021-01-31 23:01] LABS: INR 1.94 (0.85-1.17); PROTIME 20.6 SECONDS (11.6-15.0)
[2021-02-01] VITALS (60 sets, daily range): BP systolic 48–146; BP diastolic 14–61
[2021-02-01 04:56] LABS: BASOPHILS 0.4 % (0-2); EOSINOPHILS 0 % (0-7); IMMATURE GRANULOCYTES 1.1 % (0-5); LYMPHOCYTE ABS# 1.67 10x3/uL (1.18-3.74); LYMPHOCYTES 9.8 % (15-50); MCH 29.4 pg (26.0-34.0); MCHC 34.3 g/dL (31.0-37.0); MEAN PLATELET VOLUME 10.8 fL (7.4-10.4); MONOCYTES 7.8 % (2-11); NEUTROPHIL ABS# 13.82 10x3/uL (1.56-6.13); NEUTROPHILS 80.9 % (40-80)
[2021-02-01 05:30] LABS: BILIRUBIN - TOTAL 1.42 mg/dL (0.2-1.3); CALCIUM 7.4 mg/dL (8.5-10.1); MAGNESIUM - SERUM 2.4 mg/dL (1.8-2.4); POTASSIUM - SERUM 3.1 mmol/L (3.5-5.1)
[2021-02-01 05:34] LABS: APTT 40.4 SECONDS (22.8-39.4); INR 1.98 (0.85-1.17); PROTIME 20.9 SECONDS (11.6-15.0)
[2021-02-01 05:37] LABS: ALBUMIN 1.6 g/dL (3.4-5.0); ANION GAP 31.5 mmol/L (8-16); CARBON DIOXIDE 17.6 mmol/L (21.0-32.0); CREATININE - SERUM 1.7 mg/dL (0.6-1.3); HEMATOCRIT 33.8 % (36.0-48.0); HEMOGLOBIN 11.6 g/dL (12-16); MCV 85.6 fL (80.0-100.0); PROTEIN - SERUM 3.5 g/dL (6.4-8.2); RBC 3.95 10x6/uL (4.00-5.40); WBC 17.1 10x3/uL (4.8-10.8)
[2021-02-01 05:39] LABS: PHOSPHOROUS 13.3 mg/dL (2.5-4.9)
[2021-02-01 05:40] LABS: PLATELET COUNT 44 10x3/uL (130-400)
[2021-02-01 05:47] LABS: D-DIMER-QUANTITATIVE 7.39 ug/mLFEU (0.20-0.54); PLATELET ESTIMATE DECREASED
--- NOTE | 2021-02-01 07:51 | NUR ---
Pt going to CVOR during shift change around 0700.
--- NOTE | 2021-02-01 08:20 | NUR ---
NO X-RAY TAKEN FOR LAP AND RETRACTOR IN/ON PATIENT COUNT CORRECT COUNTING LAP IN PATIENT CHEST, DR BERMUDEZ NOTIFIED, JEB.
--- NOTE | 2021-02-01 09:59 | NUR ---
Pt returned from CVOR, Pt condition is critical, nurse at bedside, family notified and at bedside. Pt returned to room around 0833, IABP in place, chest still open, meds per MAR, assessment per flow sheet, vitals per flow sheet.
--- NOTE | 2021-02-01 14:55 | OP ---
PATIENT NAME: ELISSA STRANGE MEDICAL RECORD: [id number] :51 LOCATION:D.[id number] ADMISSION DATE:01/29/21 SURGEON: MANUEL BERMUDEZ MD DATE OF OPERATION: 01/31/2021 SURGEON: Manuel Bermudez MD PROCEDURES PERFORMED: 1. Emergent median sternotomy in cardiovascular intensive care unit. 2. Patch repair, posterior free wall, left ventricle. 3. Placement of intraaortic balloon pump percutaneously via right common femoral artery. 4. Placement of left femoral arterial catheter. DIAGNOSES: Cardiac tamponade and hemorrhage. POSTOPERATIVE DIAGNOSES: AV dissociation and hemorrhage. ANESTHESIA: General. BLOOD LOSS: 1 liter. TRANSFUSIONS: 4 packed red blood cells, 3 FFP, 1 platelets. CONDITION: Critical. SPECIMENS: None. OPERATIVE PROCEDURE: In the intensive care, the patient lost ventricular capture after being in sinus rhythm earlier in the day and at the bedside, it was noted the patient had hemorrhage per chest tubes. The chest was emergently opened where clotted blood posterior to the heart was encountered and removed to remove the tamponade open cardiac massage and resuscitation were undertaken by ACLS protocol, but the patient continued to have hemorrhage with unstable vital signs. A felt patch with BioGlue was applied to the posterior surface of the heart and packed. Bleeding decreased significantly. The patient was resuscitated with blood and taken emergently to the operating suite. The chest was prepped and sternal retractor was placed. Pacing wires were reattached. There was no bleeding from behind the heart. Thorough antibiotic irrigation was performed. Initially, the blood pressure was monitored with a direct 22-gauge catheter in the aorta. Intraaortic balloon pump was placed. Transesophageal echocardiography was performed revealing good valvular function and no or minimal perivalvular leak. The patient was watched for at least an hour and hemodynamically stable. Coagulopathy with INR greater than 2 was encountered and it was corrected and with a heart and lungs being edematous, it was felt that the patient could not tolerate sternal closure. A thorough antibiotic irrigation again performed. New chest tubes were placed. The patient was paced. The sternal retractor was covered with an Ioban. Left femoral arterial catheter was placed. The patient in ICU, critical. TRANSINT:[id number] Voice Confirmation ID: [id number] DOCUMENT ID: [id number] OPERATIVE REPORT [id number] ELISSA STRANGE DANIEL W MD at 1455 CC: [id number] DICTATION DATE: 01/31/21 1616 TELEVISION REPAIR TEACHER: 01/31/21 1839 ADM IN [place] [id number] [place] [id number]
--- NOTE | 2021-02-01 17:42 | NUR ---
Around 1600 Dr. Ritchie was notified that the pacemaker was not capturing. The pacer was set at 80 bmp and the heart was beating about 56-[address] Ritchie had his nurse Alexandra to come look at the pacer. About 1615 the pt started bradying down and pressure were decreasing. Dr. Barnes and Dr. Wu are at bedside now. Under their direction and with verbal orders given there were 7amps of calcium, 4 amp of epi, 2 amps of bicarb, 1 vasopressin, titration adjustments to epi drip, vasopressin drip and levo drip. Dr. Barnes pronounced the pt @ 1639.
--- NOTE | 2021-02-02 14:38 | OP ---
PATIENT NAME: ELISSA STRANGE MEDICAL RECORD: [id number] :51 LOCATION:D.[facility] D.CV07 ADMISSION DATE:01/29/21 SURGEON: MANUEL BERMUDEZ MD DATE OF OPERATION: 02/01/2021 SURGEON: Manuel Bermudez MD PROCEDURES PERFORMED: 1. Sternal antibiotic irrigation, washout. 2. Placement of left femoral venous dialysis access catheter. INDICATION: Cardiac failure and postoperative hemorrhage. ANESTHESIA: General endotracheal anesthesia. ESTIMATED BLOOD LOSS: None. COMPLICATIONS: Coagulopathy. CONDITION: Critical. DISPOSITION: ICU. OPERATIVE FINDINGS: 1. No evidence of hemorrhage and the heart appeared normal, but the patient has low cardiac output. 2. Good blood return in the femoral access catheter. INDICATION: Open sternotomy after resuscitation for postoperative hemorrhage. PROCEDURE IN DETAIL: The patient was brought to the operating suite. The bandages were sterilely removed from the chest and it was prepped. The antibiotic irrigation was performed. There was no clot and there was no bleeding. The bandages were placed. Left groin was prepped. Femoral vein was cannulated. Guidewire was passed. Sequential dilators were passed after enlarging the skin incision and then the Trialysis catheter was placed with good blood return, flushed with heparinized saline, sutured in place. The patient to ICU, critical. 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
== END 2021-02-01 16:39 | DRG 219 ==
LOC: D.SDCHOLD 01-29 05:05 → D.CVICU 01-29 05:05 → D.SDCHOLD 01-29 07:30 → D.CVICU 01-29 12:37
PROVIDERS: Internal Medicine Pulmonary Disease; ADMIT Thoracic Surgery (Cardiothoracic Vascular Surgery); ATTEND Thoracic Surgery (Cardiothoracic Vascular Surgery)
PROC: 5A1945Z Respiratory Ventilation, 24-96 Consecutive Hours (ICD-10-PCS; 2021-01-29)
PROC: 02RG08Z Replacement of Mitral Valve with Zooplastic Tissue, Open Approach (ICD-10-PCS; principal; 2021-01-29 07:30)
PROC: 02580ZZ Destruction of Conduction Mechanism, Open Approach (ICD-10-PCS; 2021-01-29 07:30)
PROC: 02UM0JZ Supplement Ventricular Septum with Synthetic Substitute, Open Approach (ICD-10-PCS; 2021-01-31)
PROC: 5A02210 Assistance with Cardiac Output using Balloon Pump, Continuous (ICD-10-PCS; 2021-01-31)
PROC: 04HL33Z Insertion of Infusion Device into Left Femoral Artery, Percutaneous Approach (ICD-10-PCS; 2021-01-31)
PROC: 06HY33Z Insertion of Infusion Device into Lower Vein, Percutaneous Approach (ICD-10-PCS; 2021-02-01)
PROC: 3E1Y38Z Irrigation of Pericardial Cavity using Irrigating Substance, Percutaneous Approach (ICD-10-PCS; 2021-02-01)
DX: I05.0 Rheumatic mitral stenosis (principal); J96.90 Respiratory failure, unspecified, unspecified whether with hypoxia or hypercapnia; J44.1 Chronic obstructive pulmonary disease with (acute) exacerbation; D62 Acute posthemorrhagic anemia; E87.0 Hyperosmolality and hypernatremia; E87.4 Mixed disorder of acid-base balance; I45.89 Other specified conduction disorders; I48.91 Unspecified atrial fibrillation; I10 Essential (primary) hypertension; I25.10 Atherosclerotic heart disease of native coronary artery without angina pectoris; K21.9 Gastro-esophageal reflux disease without esophagitis; D69.59 Other secondary thrombocytopenia; E78.5 Hyperlipidemia, unspecified; Z79.01 Long term (current) use of anticoagulants; M19.90 Unspecified osteoarthritis, unspecified site; R50.9 Fever, unspecified; R58 Hemorrhage, not elsewhere classified; R57.0 Cardiogenic shock